=== PATIENT | female | born 1950 | race Native Hawaiian/Other Pacific Islander ===

== ENCOUNTER 2016-11-01 20:15 | Inpatient (IN) | payer MEDICARE ==
--- NOTE | 2016-11-01 20:54 | ED ---
General Adult HPI - General Chief complaint: Upper Respiratory Infection Stated complaint: congestion/high blood pressure/SOB Time Seen by Provider: 11/01/16 20:43 Source: patient, family, RN notes reviewed Mode of arrival: wheelchair Limitations: no limitations - History of Present Illness Initial comments: Chief complaint history of present illness a 65-year-old female who works at [employer] had productive cough for approximately 3 weeks. Slightly decreased appetite but no fever - Related Data Home Medications Medication Instructions Recorded Confirmed Advair Diskus Unknown Strength 1 puff INHALATION BID 11/01/16 11/01/16 Albuterol Inhaler [Ventolin Hfa 2 puff INHALATION RT-Q6H PRN 11/01/16 11/01/16 Inhaler] Cholecalciferol [Vitamin D3] 5,000 unit PO DAILY 11/01/16 11/01/16 Cyanocobalamin [Vitamin B-12] 500 mcg PO DAILY 11/01/16 11/01/16 Losartan [Cozaar] 25 mg PO DAILY 11/01/16 11/01/16 [place]-3 Fatty Acids/Fish Oil [Fish 1 cap PO DAILY 11/01/16 11/01/16 Oil 1,000 mg Softgel] Pilocarpine HCl [Isopto Carpine 4%] 2 drop BOTH EYES BID 11/01/16 11/01/16 Timolol [Betimol 0.5% Ophth Soln] 1 drop BOTH EYES BID 11/01/16 11/01/16 metFORMIN HCL [Glucophage] 500 mg PO BID 11/01/16 11/01/16 Allergies Allergy/AdvReac Type Severity Reaction Status Date / Time No Known Allergies Allergy Verified 11/01/16 20:42 Review of Systems ROS Statement: Those systems with pertinent positive or pertinent negative responses have been documented in the HPI. Review of systems no headache mild sinus pressures pressure when she bends over. Productive cough mild sore throat. No stiff neck or meningismus. No chest pain but she does have cough for 3 weeks. No GI/ problems no neuro deficits. All systems were reviewed. Past medical problems non-insulin diabetes mellitus, hypertension. He does take her medications today blood pressure is elevated 173/103 as a be repeated and treated as necessary. The patient's surgical history is none. Family history mother had liver cancer. Patient denies any ALLERGIES. She smokes only when she was 17 years of age but nothing since then. Denies alcohol use. Denies any exposure to chemicals at work or at home. ROS Other: All systems not noted in ROS Statement are negative. Past Medical History Past Medical History: Diabetes Mellitus, Hypertension History of Any Multi-Drug Resistant Organisms: None Reported Past Surgical History: No Surgical Hx Reported Past Psychological History: No Psychological Hx Reported Smoking Status: Former smoker Past Alcohol Use History: None Reported Past Drug Use History: None Reported General Exam - General Exam Comments Initial Comments: General: The patient is awake and alert, in no distress, and does not appear acutely ill. Complains of cough, sinus pressure. Vital signs temp 97.7 pulse 101 respiratory rate 20 pulse ox 93% on room air blood pressure 173/103. Eye: Pupils are equal, round and reactive to light, extra-ocular movements are intact ; there is normal conjunctiva bilaterally. No signs of icterus. Ears, nose, mouth and throat: There are moist mucous membranes and no oral lesions. Mild sinus pressure when she leans forward. Neck: The neck is supple, there is no tenderness . Cardiovascular: There is a regular rate and rhythm. No murmur, rub or gallop is appreciated. Respiratory: Crepitant rales all 4 lung cano. Mildly productive cough. No chest pain. Gastrointestinal: Soft, non-distended, non-tender abdomen without masses or organomegaly noted. There is no rebound or guarding present. No CVA tenderness. Bowel sounds are unremarkable. Back: There is no tenderness to palpation in the midline. There is no obvious deformity. No rashes noted. Musculoskeletal: Normal ROM, no tenderness, There is no pedal edema. There is no calf tenderness or swelling. Neurological: No neuro deficits complained of. Skin: Skin is warm and dry and no rashes or lesions are noted. Limitations: no limitations Course Vital Signs 11/01/16 11/01/16 11/01/16 20:21 20:55 21:45 Temperature 97.7 F 99.7 F H Pulse Rate 101 H 91 101 H Respiratory 20 22 22 Rate Blood Pressure 173/103 173/98 157/102 O2 Sat by Pulse 93 L 94 L 95 Oximetry 11/01/16 11/01/16 11/01/16 21:50 22:08 22:15 Temperature Pulse Rate 100 100 97 Respiratory 18 Rate Blood Pressure 154/96 O2 Sat by Pulse 95 Oximetry 11/01/16 11/01/16 22:45 23:14 Temperature Pulse Rate 91 90 Respiratory 20 20 Rate Blood Pressure 145/82 136/61 O2 Sat by Pulse 96 95 Oximetry EKG Findings - EKG Comments: EKG Findings:: EKG was done and reviewed at 2146 showing sinus tachycardialeft bundle branch block rate 103. [place] interval is 150 QRS 142 QTc is 426 QTc is 558. There is no old EKG to compare to. Dr. Lobato Medical Decision Making - Medical Decision Making Labs show white count 7.6 hemoglobin 11.9 hematocrit of 36, INR 1.2, potassium 3.6, BUN 21 creatinine 0.7 and GFR greater than 60. Glucose 117. CK normal. Troponin less than 0.012. BNP is elevated at 3570. Chest x-ray done AP and lateral view was reviewed by radiologist his findings are the heart is enlarged. Pulmonary arteries are prominent centrally. No pneumothorax or pleural effusion. Increased lung Y am suggest underlying COPD. No evident airspace disease. Impression; cardiomegaly, correlate for possible pulmonary artery hypertension, COPD. Patient is rotated follow-up suggested. As read by The patient to be admitted for further evaluation. New-onset CHF. Elevated BNP 3570. - Lab Data Result diagrams: 11/01/16 21:45 11/01/16 21:45 Lab Results 11/01/16 11/01/16 11/01/16 Range/Units 21:45 21:45 21:45 WBC 7.6 (3.8-10.6) k/uL RBC 4.09 (3.80-5.40) m/uL Hgb 11.9 (11.4-16.0) gm/dL Hct 36.5 (34.0-46.0) % MCV 89.1 (80.0-100.0) fL MCH 29.1 (25.0-35.0) pg MCHC 32.7 (31.0-37.0) g/dL RDW 15.0 (11.5-15.5) % Plt Count 181 (150-450) k/uL Neutrophils % 66 % Lymphocytes % 24 % Monocytes % 4 % Eosinophils % 4 % Basophils % 1 % Neutrophils # 5.0 (1.3-7.7) k/uL Lymphocytes # 1.8 (1.0-4.8) k/uL Monocytes # 0.3 (0-1.0) k/uL Eosinophils # 0.3 (0-0.7) k/uL Basophils # 0.0 (0-0.2) k/uL Poikilocytosis Slight PT (9.0-12.0) sec INR (<1.1) APTT (22.0-30.0) sec Sodium 145 (137-145) mmol/L Potassium 3.6 (3.5-5.1) mmol/L Chloride 112 H (98-107) mmol/L Carbon Dioxide 22 (22-30) mmol/L Anion Gap 11 mmol/L BUN 21 H (7-17) mg/dL Creatinine 0.70 (0.52-1.04) mg/dL Est GFR (MDRD) Af Amer >60 (>60 ml/min/1.73 sqM) Est GFR (MDRD) Non-Af >60 (>60 ml/min/1.73 sqM) Glucose 117 H (74-99) mg/dL Calcium 9.5 (8.4-10.2) mg/dL Magnesium 1.8 (1.6-2.3) mg/dL Total Bilirubin 0.9 (0.2-1.3) mg/dL AST 40 H (14-36) U/L ALT 47 (9-52) U/L Alkaline Phosphatase 69 (38-126) U/L Total Creatine Kinase 41 (30-135) U/L CK-MB (CK-2) 0.6 (0.0-2.4) ng/mL CK-MB (CK-2) Rel Index 1.5 Troponin I <0.012 (0.000-0.034) ng/mL NT-Pro-B Natriuret Pep pg/mL Total Protein 7.0 (6.3-8.2) g/dL Albumin 4.0 (3.5-5.0) g/dL 11/01/16 11/01/16 Range/Units 21:45 21:45 WBC (3.8-10.6) k/uL RBC (3.80-5.40) m/uL Hgb (11.4-16.0) gm/dL Hct (34.0-46.0) % MCV (80.0-100.0) fL MCH (25.0-35.0) pg MCHC (31.0-37.0) g/dL RDW (11.5-15.5) % Plt Count (150-450) k/uL Neutrophils % % Lymphocytes % % Monocytes % % Eosinophils % % Basophils % % Neutrophils # (1.3-7.7) k/uL Lymphocytes # (1.0-4.8) k/uL Monocytes # (0-1.0) k/uL Eosinophils # (0-0.7) k/uL Basophils # (0-0.2) k/uL Poikilocytosis PT 11.5 (9.0-12.0) sec INR 1.2 (<1.1) APTT 23.6 (22.0-30.0) sec Sodium (137-145) mmol/L Potassium (3.5-5.1) mmol/L Chloride (98-107) mmol/L Carbon Dioxide (22-30) mmol/L Anion Gap mmol/L BUN (7-17) mg/dL Creatinine (0.52-1.04) mg/dL Est GFR (MDRD) Af Amer (>60 ml/min/1.73 sqM) Est GFR (MDRD) Non-Af (>60 ml/min/1.73 sqM) Glucose (74-99) mg/dL Calcium (8.4-10.2) mg/dL Magnesium (1.6-2.3) mg/dL Total Bilirubin (0.2-1.3) mg/dL AST (14-36) U/L ALT (9-52) U/L Alkaline Phosphatase (38-126) U/L Total Creatine Kinase (30-135) U/L CK-MB (CK-2) (0.0-2.4) ng/mL CK-MB (CK-2) Rel Index Troponin I (0.000-0.034) ng/mL NT-Pro-B Natriuret Pep 3570 pg/mL Total Protein (6.3-8.2) g/dL Albumin (3.5-5.0) g/dL Disposition Clinical Impression: Pulmonary artery hypertension Disposition: ADMITTED IP TO THIS HOSP Condition: Fair
[2016-11-01] MEDS ORDERED: cloNIDine HCL 0.2 MG TAB PO STA (20:56)
--- NOTE | 2016-11-01 21:14 | XR ---
EXAMINATION TYPE: XR chest 2V DATE OF EXAM: 11/01/2016 9:04 PM COMPARISON: NONE HISTORY: Productive cough TECHNIQUE: Frontal and lateral views of the chest are obtained. FINDINGS: The heart is enlarged. Pulmonary arteries are prominent centrally. No pneumothorax or pleu ral effusion. Increased lung volume suggests underlying COPD. No evident airspace disease. IMPRESSION: Cardiomegaly, correlate for possible pulmonary artery hypertension, COPD. Patient is rot ated, follow-up suggested.
[2016-11-01] MEDS ORDERED: IPRATROPIUM-ALBUTEROL 3 ML NEB INHALATION STA (21:27)
[2016-11-01 22:03] LABS: Basophils % (A) 1 %; CH 29.5; CHCM 33.4; Eosinophils # (A) 0.3 k/uL (0-0.7); Eosinophils % (A) 4 %; HCT 36.5 % (34.0-46.0); HDW 3.48; HGB 11.9 gm/dL (11.4-16.0); Luc # (Auto) 0.12; Luc % (Auto) 2; Lymphocytes # (A) 1.8 k/uL (1.0-4.8); Lymphocytes % (A) 24 %; MCH 29.1 pg (25.0-35.0); MCHC 32.7 g/dL (31.0-37.0); MCV 89.1 fL (80.0-100.0); Mean Platelet Volume 8.5; Monocytes # (A) 0.3 k/uL (0-1.0); Monocytes % (A) 4 %; Neutrophils % (A) 66 %; Poikilocytosis Slight; RBC 4.09 m/uL (3.80-5.40); WBC 7.6 k/uL (3.8-10.6); WBC (Perox) 7.89
[2016-11-01 22:13] LABS: INR 1.2 (<1.1); Partial Thromboplastin Time 23.6 sec (22.0-30.0); Prothrombin Time 11.5 sec (9.0-12.0)
[2016-11-01 22:22] LABS: ALT 47 U/L (9-52); AST 40 U/L (14-36); Alkaline Phosphatase 69 U/L (38-126); Anion Gap 11 mmol/L; Blood Urea Nitrogen 21 mg/dL (7-17); Calcium 9.5 mg/dL (8.4-10.2); Carbon Dioxide 22 mmol/L (22-30); Chloride 112 mmol/L (98-107); Glucose 117 mg/dL (74-99); Magnesium 1.8 mg/dL (1.6-2.3); Non-African American GFR(MDRD) >60 (>60 ml/min/1.73 sqM); Potassium 3.6 mmol/L (3.5-5.1); Sodium 145 mmol/L (137-145); Total Bilirubin 0.9 mg/dL (0.2-1.3)
[2016-11-01 22:43] LABS: Creatine Kinase 41 U/L (30-135)
[2016-11-01 22:56] LABS: Creatine Kinase MB 0.6 ng/mL (0.0-2.4); Troponin I <0.012 ng/mL (0.000-0.034)
[2016-11-01] MEDS ORDERED: FUROSEMIDE 10 MG/ML 4 ML VIAL IV STA (23:24)
[2016-11-01] MEDS ORDERED: ACETAMINOPHEN TAB 325 MG TAB PO PRN (23:29)
[2016-11-01] MEDS ORDERED: NALOXONE 0.4 MG/ML 1 ML VIAL IV PRN (23:29)
[2016-11-01] MEDS ORDERED: SODIUM CHLORIDE 0.9% 1,000 ML IV SCH (23:30)
[2016-11-01] MEDS ORDERED: ALBUTEROL NEBULIZED 2.5 MG/3 ML INHALATION PRN (23:34)
[2016-11-02] MEDS: metFORMIN 500 MG TAB PO SCH ×2 (06:29→17:34)
[2016-11-02 07:05] LABS: Glucose,Whole Blood 92 mg/dL (75-99)
[2016-11-02] MEDS: CHOLECALCIFEROL 1,000 UNIT TAB PO SCH (08:09)
[2016-11-02] MEDS: LOSARTAN 25 MG TAB PO SCH (08:10)
[2016-11-02] MEDS: TIMOLOL 0.5% OPHTH DROPS 5 ML BTL BOTH EYES SCH ×2 (08:17→21:43)
--- NOTE | 2016-11-02 10:38 | P.CRDCN ---
History of Present Illness Consult date: 11/02/16 Requesting physician: Leif Lubin Consult reason: shortness of breath Chief complaint: Shortness of breath History of present illness: This is a 65-year-old female with history of hypertension, diabetes, who presents to the hospital with shortness of breath. According to the patient for the past 3 weeks or more she has been quite short of breath at home. She states that she was initially treated for bronchitis as an outpatient , on 2 separate trials of antibiotics. In spite of this she continued to feel short of breath. Patient also complained of progressive cough, with clear sputum production. She states that when she would try to lie flat, she could not breathe and persistently coughed. She was using more and more pillows at home underneath her to be able to sleep, because of the difficulty in breathing. She denies having any chest pressure, no chest heaviness. Chest x- ray on admission revealed cardiomegaly, pulmonary arterial hypertension, COPD. EKG on admission showed a sinus tachycardia with a left bundle-branch block pattern. Nonspecific ST-T wave changes. CBC normal, potassium 3.6, BUN 21, creatinine 0.7. BNP level on arrival 3570, troponin 0.012. Blood Pressure on arrival 173/103, heart rate in the 100s, 93% on room air. Blood pressure this morning 132/70 with a heart rate in the 80s. Past Medical History Past Medical History: Diabetes Mellitus, Hypertension History of Any Multi-Drug Resistant Organisms: None Reported Past Surgical History: No Surgical Hx Reported Past Psychological History: No Psychological Hx Reported Smoking Status: Former smoker Past Alcohol Use History: None Reported Past Drug Use History: None Reported Medications and Allergies Home Medications Medication Instructions Recorded Confirmed Type Albuterol Inhaler [Ventolin Hfa 2 puff INHALATION RT-Q6H PRN 11/01/16 11/01/16 History Inhaler] Cholecalciferol [Vitamin D3] 5,000 unit PO DAILY 11/01/16 11/01/16 History Cyanocobalamin [Vitamin B-12] 500 mcg PO DAILY 11/01/16 11/01/16 History Losartan [Cozaar] 25 mg PO DAILY 11/01/16 11/01/16 History [place]-3 Fatty Acids/Fish Oil [Fish 1 cap PO DAILY 11/01/16 11/01/16 History Oil 1,000 mg Softgel] [place]oc[place] HCl [Isopto Carpine 4%] 2 drop BOTH EYES BID 11/01/16 11/01/16 History Timolol [Betimol 0.5% Ophth Soln] 1 drop BOTH EYES BID 11/01/16 11/01/16 History metFORMIN HCL [Glucophage] 500 mg PO BID 11/01/16 11/01/16 History Fluticasone/Salmeterol [Advair 1 inhalation PO RT-BID 11/02/16 11/02/16 History 250-50 Diskus] Allergies Allergy/AdvReac Type Severity Reaction Status Date / Time No Known Allergies Allergy Verified 11/01/16 20:42 Physical Exam Vitals: Vital Signs Temp Pulse Pulse Resp BP BP Pulse Ox 11/02/16 08:05 98.1 F 84 16 133/78 97 11/02/16 04:00 84 20 129/71 94 L 11/01/16 23:59 97.0 F L 87 20 134/78 96 11/01/16 23:38 98.9 F 89 20 133/78 95 Intake and Output 11/01/16 11/02/16 11/02/16 22:59 06:59 14:59 Intake Total 600 Output Total 550 500 Balance 50 -500 Intake: Intake, IV Titration 350 Amount Sodium Chloride 0.9% 1, 350 000 ml @ 50 mls/hr IV . Q20H [facility] Rx#:[id number] Oral 250 Output: Urine 550 500 Other: Voiding Method Toilet Weight 70.307 kg PHYSICAL EXAMINATION: HEENT: Head is atraumatic, normocephalic. Pupils equal, round. Neck is supple. There is elevated jugular venous pressure. HEART EXAMINATION: Heart S1, S2 systolic murmur heard. No murmur or gallop heard. CHEST EXAMINATION: Lungs are clear with diminished air entry to bilateral bases . ABDOMEN: Soft, nontender. Bowel sounds are heard. Mild hepatomegaly noted. EXTREMITIES: 2+ peripheral pulses with no evidence of peripheral edema and no calf tenderness noted. NEUROLOGIC patient is awake, alert and oriented -3. . Results 11/01/16 21:45 11/01/16 21:45 Current Medications Generic Name Dose Route Start Last Admin Trade Name Freq PRN Reason Stop Dose Admin Acetaminophen 650 mg 11/01/16 23:29 Tylenol Tab PO Q6HR PRN Mild Pain or Fever > 100.5 Albuterol Sulfate 2.5 mg 11/01/16 23:34 Ventolin Nebulized INHALATION RT-Q6H PRN Shortness Of Breath Carvedilol 3.125 mg 11/02/16 10:00 Coreg PO BID-W/MEALS [facility] Cholecalciferol 5,000 unit 11/02/16 09:00 11/02/16 08:09 Vitamin D3 PO 5,000 unit DAILY [facility] Administration Furosemide 40 mg 11/02/16 10:00 Lasix IV Q12HR [facility] [place] Insulin Human Lispro 0 unit 11/02/16 12:30 Humalog SQ ACHS [facility] Protocol Losartan Potassium 25 mg 11/02/16 09:00 11/02/16 08:10 Cozaar PO 25 mg DAILY [facility] Administration Metformin HCl 500 mg 11/02/16 07:30 11/02/16 06:29 Glucophage PO Not Given AC-BID [facility] [place] Naloxone HCl 0.2 mg 11/01/16 23:29 Narcan IV Q2M PRN Opioid Reversal Non-Formulary Medication 2 drop 11/02/16 09:00 Pilocarpine Hcl [Isopto Carpine 4%] BOTH EYES BID [facility] [place] Timolol Maleate 1 drops 11/02/16 09:00 11/02/16 08:17 Timoptic BOTH EYES 1 drops BID [facility] Administration Intake and Output 11/01/16 11/02/16 11/02/16 22:59 06:59 14:59 Intake Total 600 Output Total 550 500 Balance 50 -500 Intake: Intake, IV Titration 350 Amount Sodium Chloride 0.9% 1, 350 000 ml @ 50 mls/hr IV . Q20H [facility] [place] Rx#:[id number] Oral 250 Output: Urine 550 500 Other: Voiding Method Toilet Weight 70.307 kg EKG Interpretations (text) EKG shows a sinus tachycardia with a left bundle-branch block pattern and nonspecific ST-T wave changes Assessment and Plan Plan: Assessment and plan #1 systolic congestive heart failure, acute on chronic. BNP level 3570. Patient initiated on IV Lasix in the emergency room, weight is down 3 kg today. #2 hypertension, accelerated #3 history of hypertension #4 diabetes #5 recent upper respiratory infection Plan Cardiac gram with Doppler study was obtained, this was reviewed by Dr. Rizvi, patient's LV function is significantly reduced. This could be secondary to recent virus, also could be related to uncontrolled hypertension. Continue maximal medical therapy. Further recommendations to follow. DNP note has been reviewed, I agree with a documented findings and plan of care. Patient was seen and examined.
[2016-11-02 11:29] LABS: Hemoglobin A1C 5.1 % (4.2-6.1)
--- NOTE | 2016-11-02 11:42 | ECHOF ---
Referral Reason:New-onset CHF, pulmonary artery hypertension MEASUREMENTS -------- HEIGHT: 152.4 cm WEIGHT: 70.3 kg BP: 129/71 RVIDd: 2.4 cm (< 3.3) IVSd: 1.2 cm (0.6 - 1.1) LVIDd: 4.9 cm (3.9 - 5.3) LVPWd: 1.0 cm (0.6 - 1.1) IVSs: 1.2 cm LVIDs: 4.7 cm LVPWs: 1.2 cm LA Diam: 4.1 cm (2.7 - 3.8) LAESV Index (A-L): 49.54 ml/m Ao Diam: 3.2 cm (2.0 - 3.7) AV Cusp: 1.9 cm (1.5 - 2.6) LA Diam: 4.5 cm (2.7 - 3.8) MV EXCURSION: 14.382 mm (> 18.000) MV EF SLOPE: 69 mm/s (70 - 150) EPSS: 1.8 cm MV E Matthieu: 1.00 m/s MV DecT: 165 ms MV A Matthieu: 0.66 m/s MV E/A Ratio: 1.51 RAP: 5.00 mmHg RVSP: 52.75 mmHg FINDINGS -------- Sinus rhythm. This was a techncally difficult study with suboptimal views, , Definity utilized for enhancement of images. There is mild concentric left ventricular hypertrophy. There is severe global hypokinesis of LV . Overall left ventricular systolic function is severely impaired with, an EF < 20%. The right ventricle is normal in size. LA is severely dilated >40 ml/m2 The right atrial size is normal. There is mild aortic valve sclerosis. There is no evidence of aortic regurgitation. Mild mitral annular calcification present. Moderate mitral regurgitation is present. Mild tricuspid regurgitation present. There is moderate pulmonary hypertension. The right ventricular systolic pressure, as measured by Doppler, is 52.75mmHg. Trace/mild (physiologic) pulmonic regurgitation. The aortic root size is normal. There is no pericardial effusion. CONCLUSIONS -------- 1. This was a techncally difficult study with suboptimal views, , Definity utilized for enhancement of images. 2. There is moderate pulmonary hypertension. 3. The right ventricular systolic pressure, as measured by Doppler, is 52.75mmHg. 4. There is mild concentric left ventricular hypertrophy. 5. There is severe global hypokinesis of LV . 6. Overall left ventricular systolic function is severely impaired with, an EF < 20%. 7. LA is severely dilated >40 ml/m2 8. There is mild aortic valve sclerosis. 9. Mild mitral annular calcification present. 10. Moderate mitral regurgitation is present. 11. Mild tricuspid regurgitation present. SPRING INSPECTOR: Thea Arroyo RDCS
[2016-11-02 11:43] LABS: Glucose,Whole Blood 101 mg/dL (75-99)
[2016-11-02] MEDS: FUROSEMIDE 10 MG/ML 4 ML VIAL IV SCH ×2 (12:36→21:44)
[2016-11-02] MEDS: CARVEDILOL 3.125 MG TAB PO SCH ×2 (12:36→17:34)
[2016-11-02] MEDS: INSULIN LISPRO (humaLOG) 300 UNIT/3 ML VIAL SQ SCH ×3 (12:37→21:27)
--- NOTE | 2016-11-02 13:09 | P.HPIM ---
History of Present Illness H&P Date: 11/02/16 Chief Complaint: Acute systolic heart failure This is a 65-year-old female with a previous medical history significant for hypertension and hypertensive cardiovascular disease, diabetes mellitus type 2, overweight, patient was seen by her family physician Dr. Levin about a week ago because of increased shortness breath, apparently the patient developed to have a significant upper respiratory tract infection with a sore throat and an acute bronchitis about 2 weeks prior to this presentation and the yesterday she became so short of breath that she could not even embolism for a few steps without getting extremely short of breath she ended up coming to the ER at [facility] and she was found to have pulmonary venous congestion with the acute systolic heart failure after she did have an echocardiogram with ejection fraction 20%. Patient had a baseline EKG with left bundle branch block , patient will need to have further ventilation by cardiology, patient will be seen and evaluated she was started already on Lasix 40 mg IV push every 12 hours , she was started on losartan along with Coreg 3.125 mg orally twice every day. Review of Systems Constitutional: Reports malaise, Reports weakness, Reports weight gain, Denies chronic headaches, Denies chronic pain, Denies fever, Denies lethargy Eyes: denies blurred vision, denies bulging eye, denies decreased vision Ears: deny: decreased hearing Ears, nose, mouth and throat: Denies dysphagia, Denies neck lump, Denies sore throat, Denies vertigo Breasts: absent: change in shape Cardiovascular: Reports decreased exercise tolerance, Reports dyspnea on exertion, Reports high blood pressure, Reports orthopnea, Reports paroxysmal nocturnal dyspnea, Reports shortness of breath, Denies chest pain, Denies irregular heart beat, Denies palpitations, Denies phlebitis, Denies rapid heart beat, Denies syncope Respiratory: Reports congestion, Reports cough, Denies cough with sputum, Denies home oxygen, Denies pain, Denies sleep apnea, Denies snoring, Denies wheezing Gastrointestinal: Denies abdominal pain, Denies bloating, Denies BRBPR, Denies change in bowel habits, Denies excessive gas, Denies heartburn, Denies hematemesis, Denies melena, Denies nausea, Denies vomiting Genitourinary: Denies dysuria, Denies hematuria Menstruation: Reports postmenopausal Musculoskeletal: Denies myalgias Musculoskeletal: bilateral: ankle swelling, absent: ankle pain, ankle stiffness , elbow pain, elbow stiffness, elbow swelling, foot pain, foot stiffness, foot swelling, hand pain, hand stiffness, hand swelling, hip pain, hip stiffness, hip swelling, knee pain, knee stiffness, knee swelling, shoulder pain, shoulder stiffness, shoulder swelling, wrist pain, wrist stiffness, wrist swelling Integumentary: Denies pruritus, Denies rash Neurological: Denies numbness, Denies weakness Psychiatric: Denies anxiety, Denies depression Endocrine: Denies fatigue, Denies weight change Past Medical History Past Medical History: Diabetes Mellitus, Hyperlipidemia, Hypertension, Osteoarthritis (OA) History of Any Multi-Drug Resistant Organisms: None Reported Past Surgical History: No Surgical Hx Reported Past Psychological History: No Psychological Hx Reported Smoking Status: Former smoker (Patient used to smoke about pack every week for about 2 years and she quit many years ago.) Past Alcohol Use History: None Reported Past Drug Use History: None Reported - Past Family History Mother Family Medical History: Cancer (Mother at age of 81 from liver cancer.) Father Family Medical History: Diabetes Mellitus (Father at age of 88 from complications due to diabetes mellitus type 2.) Brother(s) Family Medical History: No Reported History (Patient has 4 brothers no major medical problems.) Sister(s) Family Medical History: Diabetes Mellitus (Patient has 6 sisters one of them with diabetes mellitus type 2.) Son(s) Family Medical History: No Reported History (Patient has 3 sons no major medical problems) Medications and Allergies Home Medications Medication Instructions Recorded Confirmed Type Albuterol Inhaler [Ventolin Hfa 2 puff INHALATION RT-Q6H PRN 11/01/16 11/01/16 History Inhaler] Cholecalciferol [Vitamin D3] 5,000 unit PO DAILY 11/01/16 11/01/16 History Cyanocobalamin [Vitamin B-12] 500 mcg PO DAILY 11/01/16 11/01/16 History Losartan [Cozaar] 25 mg PO DAILY 11/01/16 11/01/16 History [place]-3 Fatty Acids/Fish Oil [Fish 1 cap PO DAILY 11/01/16 11/01/16 History Oil 1,000 mg Softgel] Pilocarpine HCl [Isopto Carpine 4%] 2 drop BOTH EYES BID 11/01/16 11/01/16 History Timolol [Betimol 0.5% Ophth Soln] 1 drop BOTH EYES BID 11/01/16 11/01/16 History metFORMIN HCL [Glucophage] 500 mg PO BID 11/01/16 11/01/16 History Fluticasone/Salmeterol [Advair 1 inhalation PO RT-BID 11/02/16 11/02/16 History 250-50 Diskus] Allergies Allergy/AdvReac Type Severity Reaction Status Date / Time No Known Allergies Allergy Verified 11/01/16 20:42 Physical Exam Vitals: Vital Signs Temp Pulse Pulse Resp BP BP Pulse Ox 11/02/16 11:35 98.5 F 91 16 145/90 94 L 11/02/16 08:05 98.1 F 84 16 133/78 97 11/02/16 04:00 84 20 129/71 94 L 11/01/16 23:59 97.0 F L 87 20 134/78 96 11/01/16 23:38 98.9 F 89 20 133/78 95 Intake and Output 11/01/16 11/02/16 11/02/16 22:59 06:59 14:59 Intake Total 600 250 Output Total 550 600 Balance 50 -350 Intake: Intake, IV Titration 350 250 Amount Sodium Chloride 0.9% 1, 350 250 000 ml @ 50 mls/hr IV . Q20H [facility] Rx#:[id number] Oral 250 Output: Urine 550 600 Other: Voiding Method Toilet Weight 70.307 kg - Constitutional General appearance: mild distress - EENT Eyes: anicteric sclerae, EOMI, PERRLA, no ptosis, no scleral icterus, normal appearance ENT: hearing grossly normal, normal oropharynx, no thrush, no tonsillar exudates Ears: bilateral: normal - Neck Neck: no lymphadenopathy, normal ROM, no rigidity, no stridor, no thyromegaly Carotids: bilateral: upstroke normal Thyroid: bilateral: normal size - Respiratory Respiratory: bilateral: diminished, rales, negative: dullness, rhonchi, wheezing , prolonged expiration - Cardiovascular Rhythm: regular Heart sounds: normal: S1, S2 Abnormal Heart Sounds: systolic murmur, S3 Gallop - Gastrointestinal General gastrointestinal: normal bowel sounds, soft, no splenomegaly, no tenderness, no umbilical hernia, no ventral hernia - Integumentary Integumentary: normal, normal turgor - Neurologic Neurologic: CNII-XII intact - Musculoskeletal Musculoskeletal: gait normal, generalized weakness - Psychiatric Psychiatric: A&O x's 3, appropriate affect, intact judgment & insight Results CBC & Chem 7: 11/01/16 21:45 11/01/16 21:45 Labs: Abnormal Lab Results - Last 24 Hours (Table) 11/02/16 Range/Units 11:38 POC Glucose (mg/dL) 101 H (75-99) mg/dL Thrombosis Risk Factor Assmnt - DVT/VTE Prophylaxis DVT/VTE Prophylaxis: Pharmacologic Prophylaxis ordered, Mechanical Prophylaxis ordered - Choose All That Apply Each Risk Factor Represents 2 Points: Age 61-74 years Thrombosis Risk Factor Assessment Total Risk Factor Score: 2 Thrombosis Risk Factor Assessment Level: Low Risk Assessment and Plan Plan: Assessment and plan: 1. Acute on chronic systolic heart failure likely related to viral illness. Lasix 40 mg IV push every 12 hours, losartan 25 mg orally once every day, Coreg 3.125 mg orally twice every day, echogram was done, cardiac enzymes were done, input and output and daily weight, low salt intake, cardiology consultation, dietitian for fluid restriction. 2. Accelerated hypertension. Continue losartan 25 mg orally once every day, Coreg 3.125 mg orally twice every day. 3. Diabetes mellitus type 2. Continue consistent carbohydrate diet 1800- calorie, metformin 500 mg orally twice every day, BGM before each meal and at bedtime. 4. Obesity with possible obstructive sleep apnea. Patient will need to have a sleep study as an outpatient. 5. DVT prophylaxis. Heparin 5000 units subcutaneously every 12 hours. 6. GI prophylaxis. Continue Protonix 40 mg orally once every day. 7. Patient is full code. 8. Admit to inpatient. Estimate length of stay 2 midnights.
[2016-11-02 16:51] LABS: Glucose,Whole Blood 139 mg/dL (75-99)
[2016-11-02 20:56] LABS: Glucose,Whole Blood 106 mg/dL (75-99)
[2016-11-02] MEDS: HEPARIN SODIUM,PORCINE 5,000 UNIT/ML 1 ML VIAL SQ SCH (21:44)
[2016-11-03 06:40] LABS: Basophils % (A) 0 %; CH 29.4; CHCM 34.3; Eosinophils # (A) 0.2 k/uL (0-0.7); Eosinophils % (A) 4 %; HCT 40.8 % (34.0-46.0); HDW 3.57; HGB 13.7 gm/dL (11.4-16.0); Luc # (Auto) 0.18; Luc % (Auto) 3; Lymphocytes # (A) 2.2 k/uL (1.0-4.8); Lymphocytes % (A) 37 %; MCHC 33.6 g/dL (31.0-37.0); MCV 86.5 fL (80.0-100.0); Monocytes # (A) 0.4 k/uL (0-1.0); Monocytes % (A) 6 %; Neutrophils % (A) 50 %; Poikilocytosis Slight; RBC 4.72 m/uL (3.80-5.40); RDW 14.4 % (11.5-15.5); WBC 5.9 k/uL (3.8-10.6); WBC (Perox) 5.94
[2016-11-03 06:49] LABS: Glucose,Whole Blood 118 mg/dL (75-99)
[2016-11-03 06:53] LABS: ALT 43 U/L (9-52); AST 35 U/L (14-36); Alkaline Phosphatase 66 U/L (38-126); Anion Gap 14 mmol/L; Blood Urea Nitrogen 19 mg/dL (7-17); Calcium 10.1 mg/dL (8.4-10.2); Carbon Dioxide 27 mmol/L (22-30); Chloride 104 mmol/L (98-107); Glucose 101 mg/dL (74-99); Magnesium 1.8 mg/dL (1.6-2.3); Non-African American GFR(MDRD) >60 (>60 ml/min/1.73 sqM); Potassium 3.5 mmol/L (3.5-5.1); Sodium 145 mmol/L (137-145); Total Bilirubin 1.5 mg/dL (0.2-1.3); Total Protein 8.2 g/dL (6.3-8.2)
[2016-11-03] MEDS: CARVEDILOL 3.125 MG TAB PO SCH ×2 (06:54→17:07)
[2016-11-03] MEDS: metFORMIN 500 MG TAB PO SCH ×2 (06:54→17:07)
[2016-11-03] MEDS: INSULIN LISPRO (humaLOG) 300 UNIT/3 ML VIAL SQ SCH ×4 (06:55→21:14)
[2016-11-03] MEDS: CHOLECALCIFEROL 1,000 UNIT TAB PO SCH (09:57)
[2016-11-03] MEDS: FUROSEMIDE 10 MG/ML 4 ML VIAL IV SCH ×2 (09:58→21:14)
[2016-11-03] MEDS: HEPARIN SODIUM,PORCINE 5,000 UNIT/ML 1 ML VIAL SQ SCH ×2 (09:59→21:14)
[2016-11-03] MEDS: LOSARTAN 25 MG TAB PO SCH (10:00)
[2016-11-03] MEDS: TIMOLOL 0.5% OPHTH DROPS 5 ML BTL BOTH EYES SCH ×2 (10:00→21:14)
--- NOTE | 2016-11-03 11:57 | P.PN ---
Subjective This is a 65-year-old female with a previous medical history significant for hypertension and hypertensive cardiovascular disease, diabetes mellitus type 2, overweight, patient was seen by her family physician Dr. Levin about a week ago because of increased shortness breath, apparently the patient developed to have a significant upper respiratory tract infection with a sore throat and an acute bronchitis about 2 weeks prior to this presentation and the yesterday she became so short of breath that she could not even embolism for a few steps without getting extremely short of breath she ended up coming to the ER at [facility] and she was found to have pulmonary venous congestion with the acute systolic heart failure after she did have an echocardiogram with ejection fraction 20%. Patient had a baseline EKG with left bundle branch block , patient will need to have further ventilation by cardiology, patient will be seen and evaluated she was started already on Lasix 40 mg IV push every 12 hours , she was started on losartan along with Coreg 3.125 mg orally twice every day. 11/03: Weight is down 4.5 kg since admission. BUN 19 creatinine 0.73. She remains on Lasix 40 mg IV every 12 hours. She states her breathing is improved from yesterday. She has had a bowel movement. She is walking short distances. Objective - Vital Signs Vital signs: Vital Signs Temp 97.8 F 11/02/16 20:00 Pulse 79 11/03/16 03:44 Resp 18 11/03/16 03:44 BP 114/73 11/03/16 03:30 Pulse Ox 97 11/03/16 08:38 Intake & Output 11/02/16 11/03/16 11/03/16 18:59 06:59 18:59 Intake Total 486 300 Output Total 600 100 Balance -114 200 Weight 68.8 kg Intake: Intake, IV Titration 250 Amount Sodium Chloride 0.9% 1, 250 000 ml @ 50 mls/hr IV . Q20H [facility] Rx#:[id number] Oral 236 300 Output: Urine 600 100 Other: Voiding Method Toilet Toilet # Voids 1 - Exam General appearance: mild distress - EENT Eyes: anicteric sclerae, EOMI, PERRLA, no ptosis, no scleral icterus, normal appearance ENT: hearing grossly normal, normal oropharynx, no thrush, no tonsillar exudates Ears: bilateral: normal - Neck Neck: no lymphadenopathy, normal ROM, no rigidity, no stridor, no thyromegaly Carotids: bilateral: upstroke normal Thyroid: bilateral: normal size - Respiratory Respiratory: bilateral: diminished, rales, negative: dullness, rhonchi, wheezing , prolonged expiration - Cardiovascular Rhythm: regular Heart sounds: normal: S1, S2 Abnormal Heart Sounds: systolic murmur, S3 Gallop - Gastrointestinal General gastrointestinal: normal bowel sounds, soft, no splenomegaly, no tenderness, no umbilical hernia, no ventral hernia - Integumentary Integumentary: normal, normal turgor - Neurologic Neurologic: CNII-XII intact - Musculoskeletal Musculoskeletal: gait normal, generalized weakness - Psychiatric Psychiatric: A&O x's 3, appropriate affect, intact judgment & insight - Labs CBC & Chem 7: 11/03/16 06:08 11/03/16 06:08 Labs: Abnormal Lab Results - Last 24 Hours (Table) 11/02/16 11/02/16 11/02/16 Range/Units 11:38 16:39 20:54 BUN (7-17) mg/dL Glucose (74-99) mg/dL POC Glucose (mg/dL) 101 H 139 H 106 H (75-99) mg/dL Total Bilirubin (0.2-1.3) mg/dL 11/03/16 11/03/16 Range/Units 06:08 06:47 BUN 19 H (7-17) mg/dL Glucose 101 H (74-99) mg/dL POC Glucose (mg/dL) 118 H (75-99) mg/dL Total Bilirubin 1.5 H (0.2-1.3) mg/dL Assessment and Plan Plan: 1. Acute on chronic systolic heart failure likely related to viral illness. Lasix 40 mg IV push every 12 hours, losartan 25 mg orally once every day, Coreg 3.125 mg orally twice every day, echogram was done, cardiac enzymes were done, input and output and daily weight, low salt intake, cardiology consultation, dietitian for fluid restriction. 2. Accelerated hypertension. Continue losartan 25 mg orally once every day, Coreg 3.125 mg orally twice every day. 3. Diabetes mellitus type 2. Continue consistent carbohydrate diet 1800- calorie, metformin 500 mg orally twice every day, BGM before each meal and at bedtime. 4. Obesity with possible obstructive sleep apnea. Patient will need to have a sleep study as an outpatient. 5. DVT prophylaxis. Heparin 5000 units subcutaneously every 12 hours. 6. GI prophylaxis. Continue Protonix 40 mg orally once every day. 7. Patient is full code. Discharge plan: Return home Impression and plan of care have been directed as dictated by the signing physician. Eunice Longoria nurse practitioner acting as scribe for signing physician. Time with Patient: Greater than 30
[2016-11-03 12:02] LABS: Glucose,Whole Blood 118 mg/dL (75-99)
--- NOTE | 2016-11-03 15:12 | P.PN ---
Subjective This is a 65-year-old female with history of hypertension, diabetes, who presents to the hospital with shortness of breath. According to the patient for the past 3 weeks or more she has been quite short of breath at home. She states that she was initially treated for bronchitis as an outpatient , on 2 separate trials of antibiotics. In spite of this she continued to feel short of breath. Patient also complained of progressive cough, with clear sputum production. She states that when she would try to lie flat, she could not breathe and persistently coughed. She was using more and more pillows at home underneath her to be able to sleep, because of the difficulty in breathing. She denies having any chest pressure, no chest heaviness. Chest x- ray on admission revealed cardiomegaly, pulmonary arterial hypertension, COPD. EKG on admission showed a sinus tachycardia with a left bundle-branch block pattern. Nonspecific ST-T wave changes. Echocardiogram with Doppler study was performed which revealed an ejection fraction of less than 20%, moderate mitral regurgitation. She was initiated on IV Lasix, she diuresed well through the last night. He is down 2 kg today. BUN 19, creatinine 0.7, potassium 3.5. Overall patient is feeling much better. Patient will be scheduled to undergo cardiac catheterization tomorrow to rule out underlying coronary artery disease. The risks and the benefits were explained to the patient and her family in detail. Objective - Vital Signs Vital signs: Vital Signs Temp 97.8 F 11/03/16 11:55 Pulse 77 11/03/16 11:55 Resp 18 11/03/16 11:55 BP 126/74 11/03/16 11:55 Pulse Ox 95 11/03/16 11:55 Intake & Output 11/02/16 11/03/16 11/03/16 18:59 06:59 18:59 Intake Total 486 300 Output Total 600 100 200 Balance -114 200 -200 Weight 68.8 kg Intake: Intake, IV Titration 250 Amount Sodium Chloride 0.9% 1, 250 000 ml @ 50 mls/hr IV . Q20H [facility] Rx#:[id number] Oral 236 300 Output: Urine 600 100 200 Other: Voiding Method Toilet Toilet Toilet # Voids 1 - Exam PHYSICAL EXAMINATION: HEENT: Head is atraumatic, normocephalic. Pupils equal, round. Neck is supple. There is no elevated jugular venous pressure. HEART EXAMINATION: Heart S1 S2 1 systolic murmur is heard. CHEST EXAMINATION: Real improvement in air entry bilaterally. ABDOMEN: Soft, nontender. Bowel sounds are heard. No organomegaly noted. EXTREMITIES: 2+ peripheral pulses with trace evidence of peripheral edema and no calf tenderness noted. NEUROLOGIC patient is awake, alert and oriented -3. . - Labs CBC & Chem 7: 11/03/16 06:08 11/03/16 06:08 Labs: Abnormal Lab Results - Last 24 Hours (Table) 11/02/16 11/02/16 11/03/16 Range/Units 16:39 20:54 06:08 BUN 19 H (7-17) mg/dL Glucose 101 H (74-99) mg/dL POC Glucose (mg/dL) 139 H 106 H (75-99) mg/dL Total Bilirubin 1.5 H (0.2-1.3) mg/dL 11/03/16 11/03/16 Range/Units 06:47 11:56 BUN (7-17) mg/dL Glucose (74-99) mg/dL POC Glucose (mg/dL) 118 H 118 H (75-99) mg/dL Total Bilirubin (0.2-1.3) mg/dL Assessment and Plan Plan: Assessment and plan #1 systolic congestive heart failure, acute on chronic. BNP level 3570. Patient on IV Lasix down 2 kg today. #2 hypertension, accelerated #3 history of hypertension #4 diabetes #5 recent upper respiratory infection #6 cardiomyopathy, could be viral, could be secondary to hypertension. Rule out underlying coronary artery disease. Plan Patient will undergo cardiac catheterization tomorrow with Dr. Rizvi. The risks and the benefits were explained to the patient in detail. She is ready to proceed DNP note has been reviewed, I agree with a documented findings and plan of care. Patient was seen and examined.
[2016-11-03 16:57] LABS: Glucose,Whole Blood 133 mg/dL (75-99)
[2016-11-03 20:57] LABS: Glucose,Whole Blood 103 mg/dL (75-99)
[2016-11-04] MEDS: CARVEDILOL 3.125 MG TAB PO SCH ×2 (06:36→17:20)
[2016-11-04] MEDS: LOSARTAN 25 MG TAB PO SCH (06:36)
[2016-11-04 06:49] LABS: Glucose,Whole Blood 114 mg/dL (75-99)
[2016-11-04] MEDS ORDERED: LIDOCAINE 2% INJ 20 MG/ML (20 ML MDV) ONE ×2 (07:32→07:33)
[2016-11-04] MEDS ORDERED: ASPIRIN 325 MG TAB ONE (07:33)
[2016-11-04] MEDS ORDERED: ASPIRIN 325 MG TAB PO ONE (07:40)
[2016-11-04] MEDS ORDERED: SODIUM CHLORIDE 0.9% 500 ML IV ONE (07:40)
[2016-11-04] MEDS ORDERED: MIDAZOLAM 2 MG/2 ML VIAL ONE (07:45)
[2016-11-04] MEDS ORDERED: fentaNYL (PF) 50 MCG/ML 2 ML AMP ONE (07:45)
[2016-11-04 07:49] LABS: Anion Gap 14 mmol/L; Blood Urea Nitrogen 25 mg/dL (7-17); Calcium 10.1 mg/dL (8.4-10.2); Carbon Dioxide 26 mmol/L (22-30); Chloride 104 mmol/L (98-107); Glucose 114 mg/dL (74-99); Non-African American GFR(MDRD) >60 (>60 ml/min/1.73 sqM); Potassium 3.6 mmol/L (3.5-5.1); Sodium 144 mmol/L (137-145)
[2016-11-04] MEDS ORDERED: MIDAZOLAM 2 MG/2 ML VIAL IV ONE (07:49)
[2016-11-04] MEDS ORDERED: fentaNYL (PF) 50 MCG/ML 2 ML AMP IV ONE (07:49)
[2016-11-04] MEDS ORDERED: LIDOCAINE 2% INJ 20 MG/ML SQ ONE (07:51)
[2016-11-04] MEDS: INSULIN LISPRO (humaLOG) 300 UNIT/3 ML VIAL SQ SCH ×4 (07:58→21:43)
[2016-11-04] MEDS ORDERED: IOHEXOL 350 MG/ML 125ML BOTTLE INJ ONE (08:01)
[2016-11-04] MEDS ORDERED: RX INFO: IV CONTRAST WAS GIVEN 1 EACH MISC MISCELLANE PRN (08:07)
--- NOTE | 2016-11-04 08:13 | P.PCN ---
Date of Procedure: 11/04/16 Preoperative Diagnosis: Cardiomyopathy and congestive heart failure Postoperative Diagnosis: Mild coronary artery disease and calcification. No significant lesions Procedure(s) Performed: Left heart catheterization without left ventriculography Description of Procedure: HISTORY: This is a 65-year-old female with history of hypertension who was admitted to the hospital with complaints of shortness of breath and evidence of congestive heart failure. Echocardiogram showed severely depressed LV function and size to cardiomyopathy. Patient also has a left bundle branch block. She is advised to have cardiac catheterization for definitive diagnosis. CONSENT:I have discussed the risks, benefits and alternative therapies for the above-mentioned procedure and for both sedation/analgesia as well as necessary blood product administration, if indicated, as they pertain to this patient. The patient has indicated understanding and acceptance of the risks and procedures discussed. PROCEDURE: Patient was brought to the lab in a fasting state. Patient was given some IV sedation. The right groin is infiltrated with lidocaine and right femoral artery was entered using Seldinger technique. A 6-Trinidadian catheter was left in place and selective coronary arteriography and left ventriculography was performed. Patient tolerated the procedure well. Femoral angiogram was performed and Angio-Seal was applied for hemostasis. No immediate complications were noted and patient was transferred to [facility] in a stable condition HEMODYNAMICS: The aortic pressure is 130/75. Left ankle end-diastolic pressure is about 16. There was no gradient across the aortic valve SELECTIVE CORONARY ARTERIOGRAPHY: LEFT MAIN: This is of normal length and patent THE LEFT ANTERIOR DESCENDING CORONARY ARTERY: This is a good caliber vessel giving rise to several diagonal and septal branches. The LAD shows calcification in the proximal portion but no critical lesions were noted. THE LEFT CIRCUMFLEX AND IS CORONARY ARTERY: This is a fairly caliber vessel giving rise to good-sized to PLV branches and apical segment. This is free of any Sigmund and occlusive disease. THE RIGHT CORONARY ARTERY: This is a dominant vessel giving rise to good-sized PDA and PLV. Has calcification and mild irregularities and intimal plaque in the mid and distal portion. No critical lesions noted LEFT VENTRICULOGRAPHY: Not performed FINAL IMPRESSION: Calcification and mild plaque without any critical stenosis PLAN: Continuation maximum medical therapy and risk factor modification PROGNOSIS: Guarded
[2016-11-04] MEDS: metFORMIN 500 MG TAB PO SCH (08:40)
[2016-11-04] MEDS: SODIUM CHLORIDE 0.9% 1,000 ML IV SCH (08:44)
[2016-11-04] MEDS: HEPARIN SODIUM,PORCINE 5,000 UNIT/ML 1 ML VIAL SQ SCH ×2 (09:18→21:46)
[2016-11-04] MEDS: FUROSEMIDE 10 MG/ML 4 ML VIAL IV SCH (09:18)
[2016-11-04] MEDS: CHOLECALCIFEROL 1,000 UNIT TAB PO SCH (09:18)
[2016-11-04] MEDS: TIMOLOL 0.5% OPHTH DROPS 5 ML BTL BOTH EYES SCH ×2 (09:18→21:46)
[2016-11-04 09:52] VITALS: BMI 29.3
[2016-11-04 11:46] LABS: Glucose,Whole Blood 143 mg/dL (75-99)
--- NOTE | 2016-11-04 12:03 | P.PN ---
Subjective This is a 65-year-old female with a previous medical history significant for hypertension and hypertensive cardiovascular disease, diabetes mellitus type 2, overweight, patient was seen by her family physician Dr. Levin about a week ago because of increased shortness breath, apparently the patient developed to have a significant upper respiratory tract infection with a sore throat and an acute bronchitis about 2 weeks prior to this presentation and the yesterday she became so short of breath that she could not even embolism for a few steps without getting extremely short of breath she ended up coming to the ER at [facility] and she was found to have pulmonary venous congestion with the acute systolic heart failure after she did have an echocardiogram with ejection fraction 20%. Patient had a baseline EKG with left bundle branch block , patient will need to have further ventilation by cardiology, patient will be seen and evaluated she was started already on Lasix 40 mg IV push every 12 hours , she was started on losartan along with Coreg 3.125 mg orally twice every day. 11/03: Weight is down 4.5 kg since admission. BUN 19 creatinine 0.73. She remains on Lasix 40 mg IV every 12 hours. She states her breathing is improved from yesterday. She has had a bowel movement. She is walking short distances. 11/04: Patient underwent heart catheterization yesterday with Dr. Rizvi that showed calcification and mild plaque without any critical stenosis with recommendations to maximize medical therapy and risk factor modification. Vital signs have been stable. She has been afebrile. Weight is down over 5 kg. Her shortness of breath is improving. Lasix will be switched over to oral with anticipation she will be ready for discharge by tomorrow. Objective - Vital Signs Vital signs: Vital Signs Temp 97.3 F L 11/04/16 04:00 Pulse 81 11/04/16 10:52 Resp 18 11/04/16 08:22 BP 123/73 11/04/16 10:52 Pulse Ox 91 L 11/04/16 08:22 Intake & Output 11/03/16 11/04/16 11/04/16 18:59 06:59 18:59 Intake Total 460 220 Output Total 850 550 Balance -390 -550 220 Weight 68.1 kg 68.1 kg Intake: IV 100 Oral 460 120 Output: Urine 850 550 Other: Voiding Method Toilet Toilet Toilet # Voids 1 - Exam General appearance: mild distress - EENT Eyes: anicteric sclerae, EOMI, PERRLA, no ptosis, no scleral icterus, normal appearance ENT: hearing grossly normal, normal oropharynx, no thrush, no tonsillar exudates Ears: bilateral: normal - Neck Neck: no lymphadenopathy, normal ROM, no rigidity, no stridor, no thyromegaly Carotids: bilateral: upstroke normal Thyroid: bilateral: normal size - Respiratory Respiratory: bilateral: diminished, rales, negative: dullness, rhonchi, wheezing , prolonged expiration - Cardiovascular Rhythm: regular Heart sounds: normal: S1, S2 Abnormal Heart Sounds: systolic murmur, S3 Gallop - Gastrointestinal General gastrointestinal: normal bowel sounds, soft, no splenomegaly, no tenderness, no umbilical hernia, no ventral hernia - Integumentary Integumentary: normal, normal turgor - Neurologic Neurologic: CNII-XII intact - Musculoskeletal Musculoskeletal: gait normal, generalized weakness - Psychiatric Psychiatric: A&O x's 3, appropriate affect, intact judgment & insight - Labs CBC & Chem 7: 11/03/16 06:08 11/04/16 06:46 Labs: Abnormal Lab Results - Last 24 Hours (Table) 11/03/16 11/03/16 11/03/16 Range/Units 11:56 16:54 20:54 BUN (7-17) mg/dL Glucose (74-99) mg/dL POC Glucose (mg/dL) 118 H 133 H 103 H (75-99) mg/dL 11/04/16 11/04/16 Range/Units 06:46 06:47 BUN 25 H (7-17) mg/dL Glucose 114 H (74-99) mg/dL POC Glucose (mg/dL) 114 H (75-99) mg/dL Assessment and Plan Plan: 1. Acute on chronic systolic heart failure likely related to viral illness. Lasix 40 mg oral every 12 hours, losartan 25 mg orally once every day, Coreg 3.125 mg orally twice every day, echogram was done, cardiac enzymes were done, input and output and daily weight, low salt intake, cardiology consultation, dietitian for fluid restriction. 2. Accelerated hypertension. Continue losartan 25 mg orally once every day, Coreg 3.125 mg orally twice every day. 3. Diabetes mellitus type 2. Continue consistent carbohydrate diet 1800- calorie, metformin 500 mg orally twice every day, BGM before each meal and at bedtime. 4. Obesity with possible obstructive sleep apnea. Patient will need to have a sleep study as an outpatient. 5. DVT prophylaxis. Heparin 5000 units subcutaneously every 12 hours. 6. GI prophylaxis. Continue Protonix 40 mg orally once every day. 7. Patient is full code. Discharge plan: Return home Impression and plan of care have been directed as dictated by the signing physician. Eunice Longoria nurse practitioner acting as scribe for signing physician. Time with Patient: Greater than 30
[2016-11-04] MEDS ORDERED: MAGNESIUM HYDROXIDE 2,400 MG/10 ML CUP PO PRN (13:57)
[2016-11-04] MEDS: FUROSEMIDE 40 MG TAB PO SCH (16:06)
[2016-11-04 17:13] LABS: Glucose,Whole Blood 127 mg/dL (75-99)
[2016-11-04 21:22] LABS: Glucose,Whole Blood 122 mg/dL (75-99)
[2016-11-05 06:50] LABS: Anion Gap 12 mmol/L; Blood Urea Nitrogen 22 mg/dL (7-17); Calcium 9.7 mg/dL (8.4-10.2); Carbon Dioxide 26 mmol/L (22-30); Chloride 107 mmol/L (98-107); Glucose 108 mg/dL (74-99); Non-African American GFR(MDRD) >60 (>60 ml/min/1.73 sqM); Potassium 3.5 mmol/L (3.5-5.1); Sodium 145 mmol/L (137-145)
[2016-11-05 07:00] LABS: Glucose,Whole Blood 111 mg/dL (75-99)
[2016-11-05] MEDS: INSULIN LISPRO (humaLOG) 300 UNIT/3 ML VIAL SQ SCH (07:05)
[2016-11-05] MEDS: CARVEDILOL 3.125 MG TAB PO SCH (07:06)
[2016-11-05] MEDS: PILOCARPINE HCL BOTH EYES SCH ×3 (07:46→09:05)
[2016-11-05] MEDS: SODIUM CHLORIDE 0.9% 1,000 ML IV SCH (07:46)
[2016-11-05 07:58] VITALS: BP 119/66; PULSE 85; RESP 16; TEMP 97.1
[2016-11-05] MEDS: TIMOLOL 0.5% OPHTH DROPS 5 ML BTL BOTH EYES SCH (07:59)
[2016-11-05] MEDS: FUROSEMIDE 40 MG TAB PO SCH (07:59)
[2016-11-05] MEDS: CHOLECALCIFEROL 1,000 UNIT TAB PO SCH (07:59)
[2016-11-05] MEDS: HEPARIN SODIUM,PORCINE 5,000 UNIT/ML 1 ML VIAL SQ SCH (07:59)
[2016-11-05] MEDS: LOSARTAN 25 MG TAB PO SCH (07:59)
--- NOTE | 2016-11-05 09:42 | P.DS ---
Providers Date of admission: 11/01/16 23:29 Expected date of discharge: 11/05/16 Attending physician: Leif Lubin Consults: 11/01/16 23:50 Consult Physician Routine Consulting Provider: Yann Rizvi Consult Reason/Comments: CHF, rule out pulmonary artery hypertension Do you want consulting provider notified?: Yes, Notify in am Primary care physician: Samira Levin [facility] Course: This is a 65-year-old female with a previous medical history significant for hypertension and hypertensive cardiovascular disease, diabetes mellitus type 2, overweight, patient was seen by her family physician Dr. Levin about a week ago because of increased shortness breath, apparently the patient developed to have a significant upper respiratory tract infection with a sore throat and an acute bronchitis about 2 weeks prior to this presentation and the yesterday she became so short of breath that she could not even embolism for a few steps without getting extremely short of breath she ended up coming to the ER at [facility] and she was found to have pulmonary venous congestion with the acute systolic heart failure after she did have an echocardiogram with ejection fraction 20%. Patient had a baseline EKG with left bundle branch block , patient will need to have further ventilation by cardiology, patient will be seen and evaluated she was started already on Lasix 40 mg IV push every 12 hours , she was started on losartan along with Coreg 3.125 mg orally twice every day. 11/03: Weight is down 4.5 kg since admission. BUN 19 creatinine 0.73. She remains on Lasix 40 mg IV every 12 hours. She states her breathing is improved from yesterday. She has had a bowel movement. She is walking short distances. 11/04: Patient underwent heart catheterization yesterday with Dr. Rizvi that showed calcification and mild plaque without any critical stenosis with recommendations to maximize medical therapy and risk factor modification. Vital signs have been stable. She has been afebrile. Weight is down over 5 kg. Her shortness of breath is improving. Lasix will be switched over to oral with anticipation she will be ready for discharge by tomorrow. 11/05: Vital signs are stable. Heart rate is in the 80s. Breathing status is improved. Patient will be discharged home today in stable condition. Discharge diagnoses: 1. Acute on chronic systolic heart failure likely related to viral illness. 2. Accelerated hypertension. 3. Diabetes mellitus type 2. 4. Obesity with possible obstructive sleep apnea. Patient will need to have a sleep study as an outpatient. Discharge plan: Return home Impression and plan of care have been directed as dictated by the signing physician. Eunice Longoria nurse practitioner acting as scribe for signing physician. Patient Condition at Discharge: Good Plan - Discharge Summary New Discharge Prescriptions: Carvedilol [Coreg] 3.125 mg PO BID-W/MEALS #60 tab Furosemide [Lasix] 40 mg PO BID@0900,1600 #60 tab Potassium Chloride ER [K-Dur 20] 20 meq PO BID #60 tab Discharge Medication List Albuterol Inhaler [Ventolin Hfa Inhaler] 2 puff INHALATION RT-Q6H PRN 11/01/16 [ History] Cholecalciferol [Vitamin D3] 5,000 unit PO DAILY 11/01/16 [History] Cyanocobalamin [Vitamin B-12] 500 mcg PO DAILY 11/01/16 [History] Losartan [Cozaar] 25 mg PO DAILY 11/01/16 [History] [place]-3 Fatty Acids/Fish Oil [Fish Oil 1,000 mg Softgel] 1 cap PO DAILY [History] Pilocarpine HCl [Isopto Carpine 4%] 2 drop BOTH EYES BID 11/01/16 [History] Timolol [Betimol 0.5% Ophth Soln] 1 drop BOTH EYES BID 11/01/16 [History] metFORMIN HCL [Glucophage] 500 mg PO BID 11/01/16 [History] Fluticasone/Salmeterol [Advair 250-50 Diskus] 1 inhalation PO RT-BID 11/02/16 [ History] Carvedilol [Coreg] 3.125 mg PO BID-W/MEALS #60 tab 11/05/16 [Rx] Furosemide [Lasix] 40 mg PO BID@0900,1600 #60 tab 11/05/16 [Rx] Potassium Chloride ER [K-Dur 20] 20 meq PO BID #60 tab 11/05/16 [Rx] Follow up Appointment(s)/Referral(s): [facility] [Provider Group] - 1 Week Samira Levin MD [Primary Care Provider] - 1 Week
== END 2016-11-05 11:12 | disposition home or self-care (01) | DRG 287 ==
LOC: EC 20:15 → 6SEL 23:29
PROVIDERS: ADMIT Internal Medicine; ATTEND Internal Medicine
PROC: B2111ZZ Fluoroscopy of Multiple Coronary Arteries using Low Osmolar Contrast (ICD-10-PCS; 2016-11-04)
PROC: B2151ZZ Fluoroscopy of Left Heart using Low Osmolar Contrast (ICD-10-PCS; 2016-11-04)
PROC: 4A023N7 Measurement of Cardiac Sampling and Pressure, Left Heart, Percutaneous Approach (ICD-10-PCS; principal; 2016-11-04 07:30)
DX: I11.0 Hypertensive heart disease with heart failure (principal); I42.9 Cardiomyopathy, unspecified; I27.2 Other secondary pulmonary hypertension; I44.7 Left bundle-branch block, unspecified; I50.23 Acute on chronic systolic (congestive) heart failure; E11.9 Type 2 diabetes mellitus without complications; I25.10 Atherosclerotic heart disease of native coronary artery without angina pectoris; G47.33 Obstructive sleep apnea (adult) (pediatric); E78.5 Hyperlipidemia, unspecified; I34.0 Nonrheumatic mitral (valve) insufficiency; B97.89 Other viral agents as the cause of diseases classified elsewhere; J44.9 Chronic obstructive pulmonary disease, unspecified; M19.90 Unspecified osteoarthritis, unspecified site; R00.0 Tachycardia, unspecified; R16.0 Hepatomegaly, not elsewhere classified; R53.1 Weakness; E66.9 Obesity, unspecified; Z87.891 Personal history of nicotine dependence; Z83.3 Family history of diabetes mellitus; Z80.0 Family history of malignant neoplasm of digestive organs; Z79.899 Other long term (current) drug therapy; Z79.84 Long term (current) use of oral hypoglycemic drugs; Z79.51 Long term (current) use of inhaled steroids; Z71.3 Dietary counseling and surveillance; Z68.29 Body mass index [BMI] 29.0-29.9, adult; Z86.19 Personal history of other infectious and parasitic diseases; Z87.09 Personal history of other diseases of the respiratory system
CPT/HCPCS: 36415; 71020; 80048; 80053; 82550; 82553; 83036; 83735; 83880; 84484; 85025; 85610; 85730; 93005; 93306; 93458; 94640; 94760

== ENCOUNTER 2017-10-25 11:23 | Day surgery (SDC) | payer MEDICARE ==
[2017-10-20 13:20] VITALS: BMI 31.8
[~2017-10-25 11:23] MED LIST: ceFAZolin 1,000 MG in SODIUM CHLORIDE 0.9% IRRIGATIO 250 ML IRRIGATION ONE; ceFAZolin IN SWFI 2 GM/20 ML SYRINGE IVP ONE
[2017-10-25] MEDS: SODIUM CHLORIDE 0.9% 1,000 ML IV SCH (11:55)
[2017-10-25 12:12] LABS: Basophils % (A) 0 %; Eosinophils # (A) 0.1 k/uL (0-0.7); Eosinophils % (A) 2 %; HCT 40.1 % (34.0-46.0); HGB 13.4 gm/dL (11.4-16.0); Lymphocytes # (A) 2.5 k/uL (1.0-4.8); Lymphocytes % (A) 36 %; MCH 27.4 pg (25.0-35.0); MCHC 33.5 g/dL (31.0-37.0); Mean Platelet Volume 8.5; Monocytes # (A) 0.4 k/uL (0-1.0); Monocytes % (A) 5 %; Neutrophils # (A) 3.8 k/uL (1.3-7.7); Neutrophils % (A) 54 %; Platelet Count 207 k/uL (150-450); RBC 4.89 m/uL (3.80-5.40); RDW 13.3 % (11.5-15.5)
[2017-10-25 12:20] LABS: Glucose,Whole Blood 124 mg/dL (75-99)
[2017-10-25 13:18] LABS: Anion Gap 16 mmol/L; Blood Urea Nitrogen 21 mg/dL (7-17); Carbon Dioxide 24 mmol/L (22-30); Chloride 105 mmol/L (98-107); Glucose 123 mg/dL (74-99); Potassium 4.3 mmol/L (3.5-5.1); Sodium 145 mmol/L (137-145)
[2017-10-25 13:19] LABS: Calcium 9.7 mg/dL (8.4-10.2)
[2017-10-25] MEDS ORDERED: PROPOFOL 10 MG/ML 20 ML VIAL IV ONE (13:36)
[2017-10-25] MEDS ORDERED: MEPERIDINE 50 MG/ML SYRINGE ONE (13:36)
[2017-10-25] MEDS ORDERED: MIDAZOLAM 2 MG/2 ML VIAL ONE (13:36)
[2017-10-25] MEDS ORDERED: fentaNYL (PF) 50 MCG/ML 2 ML AMP ONE (13:36)
[2017-10-25] MEDS ORDERED: HYDROcodone/APAP 5-325MG 1 EACH TAB PO PRN (13:48)
[2017-10-25] MEDS ORDERED: ACETAMINOPHEN TAB 325 MG TAB PO PRN (13:48)
[2017-10-25] MEDS ORDERED: IOPAMIDOL-370 50ML BTL INJ ONE ×2 (13:54→16:24)
[2017-10-25] MEDS ORDERED: LIDOCAINE 1% INJ 10MG/ML (20 ML MDV) SQ ONE (14:36)
[2017-10-25] MEDS ORDERED: ACETAMINOPHEN IV (For NPO) 1,000 MG in EMPTY BAG 1 BAG IVPB ONE (18:00)
[2017-10-25 20:07] LABS: Hemoglobin A1C 6.4 % (4.0-6.0)
[2017-10-25] MEDS ORDERED: ONDANSETRON 4 MG/2 ML VIAL IVP PRN (20:33)
[2017-10-25] MEDS: ceFAZolin IN SWFI 2 GM/20 ML SYRINGE IVP SCH (20:43)
[2017-10-25] MEDS ORDERED: ATORVASTATIN 20 MG TAB PO SCH (21:00)
[2017-10-25] MEDS: CARVEDILOL 3.125 MG TAB PO SCH (22:39)
[2017-10-25] MEDS: PILOCARPINE HCL BOTH EYES SCH (22:42)
[2017-10-26] MEDS: ceFAZolin IN SWFI 2 GM/20 ML SYRINGE IVP SCH ×3 (01:50→12:36)
[2017-10-26] MEDS: LACTATED RINGERS 1,000 ML IV SCH ×2 (03:46→07:11)
[2017-10-26] MEDS: SODIUM CHLORIDE 0.9% 1,000 ML IV SCH ×2 (03:47)
--- NOTE | 2017-10-26 07:06 | XR ---
EXAMINATION TYPE: XR chest 2V DATE OF EXAM: 10/26/2017 COMPARISON: Chest x-ray November 01, 2016. HISTORY: Status post pacemaker insertion. TECHNIQUE: Frontal and lateral views of the chest are obtained. FINDINGS: There is chronic parenchymal change without suspicious new focal air space opacity, pleura l effusion, or pneumothorax seen. The cardiac silhouette size is mildly enlarged on current study le ss prominent than prior. There is new 2-lead pacemaker with leads terminating in right atrium and r ight ventricle . An atherosclerotic and ectatic thoracic aorta is redemonstrated atherosclerotic. The osseous structures are intact. IMPRESSION: New dual lead pacemaker/AICD with leads terminating in right atrium and right ventricle. No evidence of complication related to pacemaker placement.
[2017-10-26] MEDS: PILOCARPINE HCL BOTH EYES SCH (07:12)
[2017-10-26] MEDS: CARVEDILOL 3.125 MG TAB PO SCH (07:16)
[2017-10-26 07:46] VITALS: RESP 18
[2017-10-26] MEDS ORDERED: SPIRONOLACTONE 25 MG TAB PO SCH (09:00)
[2017-10-26] MEDS ORDERED: TIMOLOL 0.5% OPHTH DROPS 5 ML BTL BOTH EYES SCH (09:00)
[2017-10-26] MEDS ORDERED: FUROSEMIDE 40 MG TAB PO SCH (09:00)
--- NOTE | 2017-10-26 09:29 | ECHOF ---
Referral Reason:PERICARDIAL EFFUSION MEASUREMENTS -------- HEIGHT: 152.4 cm WEIGHT: 73.9 kg BP: FINDINGS -------- Limited study for assessment of pericardial effusion. There is no pericardial effusion. CONCLUSIONS -------- 1. Limited study for assessment of pericardial effusion. 2. There is no pericardial effusion. DIAGNOSTIC RADIOLOGIST: Baldomero Quintanilla RDCS
--- NOTE | 2017-10-26 09:37 | ECHOF ---
Referral Reason:PERICARDIAL EFFUSION MEASUREMENTS -------- HEIGHT: 152.4 cm WEIGHT: 73.9 kg BP: 143/77 RVIDd: 4.5 cm (< 3.3) IVSd: 1.1 cm (0.6 - 1.1) LVIDd: 4.9 cm (3.9 - 5.3) LVPWd: 1.1 cm (0.6 - 1.1) IVSs: 1.2 cm LVIDs: 3.8 cm LVPWs: 1.2 cm LAESV Index (A-L): 35.20 ml/m Ao Diam: 3.3 cm (2.0 - 3.7) AV Cusp: 1.5 cm (1.5 - 2.6) MV E Matthieu: 1.23 m/s MV DecT: 163 ms MV A Matthieu: 0.00 m/s MV E/A Ratio: 349.63 RAP: 5.00 mmHg RVSP: 39.42 mmHg FINDINGS -------- Paced rhythm. This was a technically difficult study with suboptimal views. The left ventricular size is normal. There is borderline concentric left ventricular hypertrophy. There is severe global hypokinesis of LV . Overall left ventricular systolic function is severely impaired with, an EF < 20%. The right ventricle is moderately enlarged. LA is moderately dilated 34-39 ml/m2 The right atrium is normal in size. Electronic pacemaker lead seen in the right ventricular cavity. 3ml of Lumason was utilized for enhancement of images. Aortic valve is trileaflet and is mildly thickened. Trace amount of aortic regurgitation. There is no evidence of aortic stenosis. The mitral valve leaflets are mildly thickened. Mild mitral regurgitation is present. Syaj-gv-sodwnkqa tricuspid regurgitation present. There is mild pulmonary hypertension. The right ventricular systolic pressure, as measured by Doppler, is 39.42mmHg. The pulmonic valve was not well visualized. The aortic root size is normal. Normal inferior vena cava with normal inspiratory collapse consistent with estimated right atrial pre ssure of 5 mmHg. There is no pericardial effusion. CONCLUSIONS -------- 1. Paced rhythm. 2. This was a technically difficult study with suboptimal views. 3. The left ventricular size is normal. 4. There is borderline concentric left ventricular hypertrophy. 5. There is severe global hypokinesis of LV . 6. Overall left ventricular systolic function is severely impaired with, an EF < 20%. 7. The right ventricle is moderately enlarged. 8. LA is moderately dilated 34-39 ml/m2 9. Electronic pacemaker lead seen in the right ventricular cavity. 10. 3ml of Lumason was utilized for enhancement of images. 11. Aortic valve is trileaflet and is mildly thickened. 12. Trace amount of aortic regurgitation. 13. The mitral valve leaflets are mildly thickened. 14. Mild mitral regurgitation is present. 15. Febq-sb-pafxgozt tricuspid regurgitation present. 16. There is mild pulmonary hypertension. 17. The right ventricular systolic pressure, as measured by Doppler, is 39.42mmHg. 18. The pulmonic valve was not well visualized. 19. The aortic root size is normal. 20. There is no pericardial effusion. PROOF MACHINE OPERATOR: Baldomero Quintanilla RDCS
[2017-10-26 11:31] VITALS: BP 128/71; PULSE 87; TEMP 98.2
--- NOTE | 2017-10-26 13:01 | P.DS ---
Providers Attending physician: Yinka George Primary care physician: [facility] Course: Patient is doing well. She has no hematoma minimal soakage in the dressing. Her device interrogation was within normal limits. She denies any chest discomfort no undue shortness of breath she is lying comfortably in bed. 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 and QRS fractionation Class II CHF, chronic Alternating left bundle branch block and right bundle branch block pattern on ECG Wide QRS Status post ICD implant Plan Continue current medications without any changes Patient will be scheduled for implantation of a His bundle lead or and LV lead either intracardiac or epicardial Discussed with the patient and her family Patient Condition at Discharge: Stable Plan - Discharge Summary Discharge Rx Participant: Yes New Discharge Prescriptions: Continue RX: metFORMIN HCL [Glucophage] 500 mg PO BID RX: Timolol [Betimol 0.5% Ophth Soln] 1 drop BOTH EYES DAILY RX: Cyanocobalamin [Vitamin B-12] 500 mcg PO DAILY RX: Cholecalciferol [Vitamin D3] 5,000 unit PO DAILY RX: [place]-3 Fatty Acids/Fish Oil [Fish Oil 1,000 mg Softgel] 1 cap PO DAILY RX: Albuterol Inhaler [Ventolin Hfa Inhaler] 2 puff INHALATION RT-Q6H PRN PRN Reason: Shortness Of Breath RX: Pilocarpine HCl [Isopto Carpine 4%] 2 drop BOTH EYES BID RX: Fluticasone/Salmeterol [Advair 250-50 Diskus] 1 inhalation PO BID PRN PRN Reason: Dyspnea RX: Carvedilol [Coreg] 3.125 mg PO BID-W/MEALS #60 tab RX: Spironolactone [Aldactone] 25 mg PO DAILY RX: Atorvastatin [Lipitor] 20 mg PO HS RX: Furosemide [Lasix] 40 mg PO DAILY Discharge Medication List RX: Albuterol Inhaler [Ventolin Hfa Inhaler] 2 puff INHALATION RT-Q6H PRN [History] RX: Cholecalciferol [Vitamin D3] 5,000 unit PO DAILY 11/01/16 [History] RX: Cyanocobalamin [Vitamin B-12] 500 mcg PO DAILY 11/01/16 [History] RX: [place]-3 Fatty Acids/Fish Oil [Fish Oil 1,000 mg Softgel] 1 cap PO DAILY [History] RX: Pilocarpine HCl [Isopto Carpine 4%] 2 drop BOTH EYES BID 11/01/16 [History] RX: Timolol [Betimol 0.5% Ophth Soln] 1 drop BOTH EYES DAILY 11/01/16 [History] RX: metFORMIN HCL [Glucophage] 500 mg PO BID 11/01/16 [History] RX: Fluticasone/Salmeterol [Advair 250-50 Diskus] 1 inhalation PO BID PRN [History] RX: Carvedilol [Coreg] 3.125 mg PO BID-W/MEALS #60 tab 11/05/16 [Rx] RX: Atorvastatin [Lipitor] 20 mg PO HS 10/20/17 [History] RX: Furosemide [Lasix] 40 mg PO DAILY 10/20/17 [History] RX: Spironolactone [Aldactone] 25 mg PO DAILY 10/20/17 [History] Follow up Appointment(s)/Referral(s): Yann Rizvi MD [STAFF PHYSICIAN] - 11/01/17 8:30 am (Device Clinic WednesdayNovember 01 @ 0830 Dr. Hanson January 18 @ 415pm) Patient Instructions/Handouts: Implantable Cardioverter Defibrillator (DC) Activity/Diet/Wound Care/Special Instructions: PATIENT EDUCATION MATERIAL Instructions following a heart rhythm device implant. 1. Keep dressing DRY for 5 DAYS. You may cover the area with Saran or Cling Wrap, prior to a shower. 2. The dressing will be removed in the Device Clinic at [facility]. Absorbable sutures were used to close the wound. 3. Avoid raising the left arm above the shoulder level. 4 week restriction 4. Avoid arm movements, like backscratching, rubbing the head, or pulling on a cord. 4 weeks restriction 5. Gentle range of motion movements of the shoulder, closest to the incision should be performed to avoid a frozen shoulder. (Pendulum exercises of the shoulder) 6. The opposite arm may be used freely. 7. Avoid driving for 7 days. 8. Avoid activities such as golfing, swimming, weed whacking, lifting more than 10 pounds weight, bowling, gymnastics and weight training/lifting. (6 weeks restriction) 9. Activities such as wood chopping with an axe, pull-ups in the gymnasium, power lifting, arc-welding, being close to home induction cooktops will always be a problem. 10. Arm sling is a mere reminder not to raise the arm above the head. However you do not need to keep the arm completely immobilized. Your free to move the arm and use it and for normal activities. In case of any problems, please call [facility], [place], @ [phone], Attention: Device Clinic Device clinic follow-up in 5 days Follow-up with primary cocoa powder mixer operator in 2-3 months
--- NOTE | 2017-10-26 20:08 | CE ---
CARDIAC ELECTROPHYSIOLOGY REPORT Norah Valderrama is a 66-year-old female patient of Dr. Rizvi and Dr. Levin. She has a history of nonischemic cardiomyopathy with a QRS fractionation of the 12-lead ECG with severe LV dysfunction. Prior to the ICD implantation I had referred her for cardiac MRI to evaluate for causes of chronic myocarditis with particular consideration for sarcoidosis. Her 2D echo shows severe LV dysfunction, but her cardiac MRI is consistent with sarcoidosis. She has hypokinesis of the inferior septum and thinning and dyskinesis of the anterior septum. She has history of class 2 CHF and alternating bundle branch block, both left bundle branch block with wide QRS and a right bundle branch block. PROCEDURE: The patient brought to the EP lab in a fasting state. Written informed consent was obtained prior to the procedure. The left shoulder area was prepped and draped as per protocol. 1% lidocaine was used for local anesthesia. Incision was made over the left deltopectoral groove and carried down to the level of the pectoralis muscle. A subfascial pocket was made. Hemostasis was assured. The left axillary vein was accessed and an initially sheath placement was attempted in the coronary sinus. Coronary sinus access was difficult on account of the QT of the coronary sinus os as well as the first 1-2 cm of the coronary sinus was angulated and therefore precluded easy entry within the body of the coronary sinus. 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 Therefore, dual-chamber ICD was implanted. The atrial lead was a terese lead implanted in the right atrial appendage. This was a 52 cm lead model 1944 and serial number [id number]. The ICD lead was a [employer] model number 7122Q, 58 cm in length and serial number [id number]. The new generator, dual-chamber ICD generator was a [employer] model number IZ2856-96I, serial number [id number]. The P waves were 2.3 mV, pacing impedance 540 ohms, pacing threshold 0.75 V at 0.5 milliseconds. 10 V test negative. The R-waves were 7.1 mV, pacing impedance 700 ohms, pacing threshold 0.5 V at 0.5 milliseconds. 10 V test negative. The device was then placed in the subfascial pocket. The wound was closed in 3 layers and dressed per protocol. DFT testing was withheld at this point. RESULT: 1. Successful dual-chamber ICD implantation. 2. Difficult coronary sinus anatomy especially at its os and the first 2 cm that precluded the easy entry of the diagnostic coronary sinus catheters from the subclavian axillary route, multiple different sheaths as well as wires and in the catheters. SUGGEST: After 4 weeks, reattempt should be made to access the coronary sinus. This would involve placement of the coronary sinus catheter from the femoral route first to straighten the tortuous anatomy of the floor coronary sinus body so as to permit entry into the coronary sinus. Alternatively epicardial lead may be considered. The other alternative is His bundle lead. However, in view of her alternating left and right bundle and her likely diagnosis of sarcoidosis (chronic myocarditis with extensive conduction system disease) the long-term outlook for His bundle pacing could be problematic given the diffuse nature of the conduction system disease. This was explained to the patient especially her family members. MMCODI / SANTANAN: [id number] /
== END 2017-10-26 15:10 | disposition home or self-care (01) ==
LOC: CATHEP 11:23 → 3OBS 16:59 → CATHEP 10-26 15:10
PROVIDERS: ATTEND Internal Medicine Clinical Cardiac Electrophysiology
DX: I08.3 Combined rheumatic disorders of mitral, aortic and tricuspid valves (principal); I27.20 Pulmonary hypertension, unspecified; I42.8 Other cardiomyopathies; I45.2 Bifascicular block; Z00.6 Encounter for examination for normal comparison and control in clinical research program; I11.0 Hypertensive heart disease with heart failure; Q24.5 Malformation of coronary vessels; I50.22 Chronic systolic (congestive) heart failure; Z87.891 Personal history of nicotine dependence; E11.9 Type 2 diabetes mellitus without complications; Z79.84 Long term (current) use of oral hypoglycemic drugs; Z79.899 Other long term (current) drug therapy
CPT/HCPCS: 93308; 33249; 80048; 85025; 83036; 71046; C8929; C1769 ×6; C1892 ×2; C1730; C1887; C1777; C1900; C1898; C1882; J2250; J2175; J2405; J0690 ×3; J2001; J3010; J2704; Q9950; Q9967; 93306

== ENCOUNTER 2018-01-24 13:00 | Day surgery (SDC) | payer MEDICARE ==
[2018-01-19 12:32] VITALS: BMI 31.8
[~2018-01-24 13:00] MED LIST changes: +ceFAZolin 1,000 MG in DEXTROSE/WATER 1 50ML.BAG IVPB STA
[2018-01-24 13:14] LABS: Basophils % (A) 0 %; Eosinophils # (A) 0.1 k/uL (0-0.7); Eosinophils % (A) 2 %; HCT 35.6 % (34.0-46.0); HGB 12.1 gm/dL (11.4-16.0); Lymphocytes # (A) 2.2 k/uL (1.0-4.8); Lymphocytes % (A) 37 %; MCH 28.4 pg (25.0-35.0); MCV 83.6 fL (80.0-100.0); Mean Platelet Volume 8.5; Monocytes # (A) 0.3 k/uL (0-1.0); Monocytes % (A) 5 %; Neutrophils # (A) 3.1 k/uL (1.3-7.7); Neutrophils % (A) 52 %; Platelet Count 165 k/uL (150-450); RBC 4.26 m/uL (3.80-5.40); RDW 13.7 % (11.5-15.5)
[2018-01-24] MEDS ORDERED: SODIUM CHLORIDE 0.9% 1,000 ML IV ONE (13:17)
[2018-01-24 13:26] LABS: Anion Gap 10 mmol/L; Blood Urea Nitrogen 15 mg/dL (7-17); Calcium 9.3 mg/dL (8.4-10.2); Carbon Dioxide 22 mmol/L (22-30); Chloride 111 mmol/L (98-107); Glucose 115 mg/dL (74-99); Potassium 4.1 mmol/L (3.5-5.1); Sodium 143 mmol/L (137-145)
[2018-01-24 14:26] LABS: Glucose,Whole Blood 123 mg/dL (75-99)
[2018-01-24] MEDS ORDERED: PROPOFOL 10 MG/ML 20 ML VIAL IV ONE ×2 (14:31)
[2018-01-24] MEDS ORDERED: MIDAZOLAM 2 MG/2 ML VIAL ONE ×2 (14:31)
[2018-01-24] MEDS ORDERED: HYDROmorphone (PF) 1 MG/ML ONE ×2 (14:31)
[2018-01-24] MEDS ORDERED: fentaNYL (PF) 50 MCG/ML 2 ML AMP ONE ×2 (14:31)
[2018-01-24] MEDS ORDERED: IOPAMIDOL-250 50ML BTL IV ONE (14:45)
[2018-01-24] MEDS ORDERED: LIDOCAINE 1% INJ 10MG/ML (20 ML MDV) ONE ×2 (14:54→15:25)
[2018-01-24] MEDS ORDERED: LIDOCAINE 1% INJ 10MG/ML (20 ML MDV) SQ ONE ×2 (15:06)
[2018-01-24] MEDS ORDERED: ceFAZolin IN SWFI 2 GM/20 ML SYRINGE IVP ONE ×2 (15:21→15:28)
[2018-01-24] MEDS ORDERED: LIDOCAINE 1% (PF) 10MG/ML VIAL SQ ONE (15:44)
[2018-01-24] MEDS ORDERED: IOPAMIDOL-370 50ML BTL INJ ONE (16:40)
[2018-01-24] MEDS ORDERED: ACETAMINOPHEN IV (For NPO) 1,000 MG in EMPTY BAG 1 BAG IVPB ONE (17:13)
[2018-01-24] MEDS ORDERED: ACETAMINOPHEN TAB 325 MG TAB PO PRN (17:13)
[2018-01-24] MEDS ORDERED: HYDROcodone/APAP 5-325MG 1 EACH TAB PO PRN (17:13)
[2018-01-24] MEDS: LACTATED RINGERS 1,000 ML IV SCH (17:59)
[2018-01-24] MEDS: SODIUM CHLORIDE 0.9% 1,000 ML IV SCH ×2 (17:59→18:01)
--- NOTE | 2018-01-24 18:10 | PCN ---
PROCEDURE NOTE Norah Valderrama is a 67-year-old female with severe cardiomyopathy and left bundle branch block who was evaluated for cardiac sarcoidosis. The cardiac PET scan did not suggest cardiac sarcoidosis. She was brought in for upgrade to a biventricular ICD which was to be attached to the previously inserted biventricular ICD generator. PROCEDURE #1: Right groin was prepped and draped as per protocol. Venous sheath was placed. Via this a diagnostic catheter was placed in the RV and later at the mouth of the coronary sinus to open the coronary sinus os, which had a large Thebesian valve. The left pectoral area was then prepped and draped as per protocol; 1% lidocaine was used for local anesthesia. A 4 cm incision was made directly over the previous surgical site and carried down to the level of the generator. The generator was explanted. Access was obtained. Sheath was placed in the left subclavian venous circulation. This was an axillary vein access. The coronary sinus catheter was placed in the coronary sinus. A venogram was performed. The patient had a large anterolateral vein. [employer] lead quality technician was placed in the LV vein. Excellent thresholds were obtained, especially in the proximal poles. High thresholds were obtained in the more distal poles. No diaphoretic stimulation noted. This was [employer] model #1458Q, 75 cm length, and serial number [id number]. The pacing impedance was 790 ohms, pacing threshold 0.75 V at 0.5 milliseconds. Ten- volt test was negative. The lead was then secured to the underlying pectoralis fascia after the sheath. This was connected to the old generator, [employer] model #ZL2935-87, serial #[id number]. The RA leads and the RV leads were interrogated and were within normal limits. The device then programmed to AV sync mode which resulted in a narrow QRS of 116 milliseconds. The patient tolerated the procedure well without any acute complications. The venous sheath from below was then removed and hemostasis was assured. RESULT: Successful upgrade to a biventricular ICD. MMODL / IJN: [id number] /
[2018-01-24] MEDS: CARVEDILOL 3.125 MG TAB PO SCH (19:04)
[2018-01-24] MEDS ORDERED: ONDANSETRON 4 MG/2 ML VIAL IVP PRN (19:42)
[2018-01-24 19:53] LABS: Glucose,Whole Blood 121 mg/dL (75-99)
[2018-01-24] MEDS ORDERED: ATORVASTATIN 20 MG TAB PO SCH (21:00)
[2018-01-24] MEDS: metFORMIN 500 MG TAB PO SCH (21:57)
[2018-01-24] MEDS: ceFAZolin IN SWFI 2 GM/20 ML SYRINGE IVP SCH (21:57)
[2018-01-25] MEDS: ceFAZolin IN SWFI 2 GM/20 ML SYRINGE IVP SCH ×3 (03:47→14:47)
[2018-01-25 06:57] LABS: Glucose,Whole Blood 112 mg/dL (75-99)
--- NOTE | 2018-01-25 08:02 | XR ---
EXAMINATION TYPE: XR chest 2V DATE OF EXAM: 01/25/2018 COMPARISON: Chest x-ray from 3 months ago. HISTORY: Defibrillator placement. TECHNIQUE: Frontal and lateral views of the chest are obtained. FINDINGS: There is redemonstration of dual-lead pacemaker/AICD with leads terminating in right atrium and right ventricle. There is new third lead terminating and coronary sinus. There is no focal air s pace opacity, pleural effusion, or pneumothorax seen. The cardiac silhouette size remains enlarged. The osseous structures are intact. IMPRESSION: New third lead terminating in coronary sinus. Cardiomegaly without acute pulmonary proce ss. No evidence of radiographic complication related to pacemaker placement.
[2018-01-25] MEDS: SODIUM CHLORIDE 0.9% 1,000 ML IV SCH ×2 (08:04)
[2018-01-25] MEDS: LACTATED RINGERS 1,000 ML IV SCH (08:05)
[2018-01-25] MEDS: metFORMIN 500 MG TAB PO SCH (08:14)
[2018-01-25] MEDS: CARVEDILOL 3.125 MG TAB PO SCH (08:15)
[2018-01-25 08:21] VITALS: RESP 18
[2018-01-25] MEDS ORDERED: LOSARTAN 25 MG TAB PO SCH (09:00)
[2018-01-25] MEDS ORDERED: TIMOLOL 0.5% OPHTH DROPS 5 ML BTL BOTH EYES SCH (09:00)
[2018-01-25] MEDS ORDERED: FUROSEMIDE 40 MG TAB PO SCH (09:00)
[2018-01-25] MEDS ORDERED: SPIRONOLACTONE 25 MG TAB PO SCH (09:00)
[2018-01-25 12:08] LABS: Glucose,Whole Blood 111 mg/dL (75-99)
[2018-01-25 12:12] VITALS: BP 117/74; PULSE 79; TEMP 98.8
--- NOTE | 2018-01-25 12:24 | P.DS ---
Providers Attending physician: Yinka George Primary care physician: [facility] Course: Patient is doing well. She underwent upgrade to a biventricular ICD yesterday. There is no hematoma minimal swelling minimal tenderness over the site. She denies any chest discomfort no undue shortness of breath On examination she is afebrile 98.8F, pulse rate in the 70s, blood pressure 117 /74 mmHg normal respirations Breath sounds are clear no rhonchi no crackles Heart sounds S1 and S2 are normal no murmurs or gallops no rub Abdomen is soft nontender Extremities are warm, no edema Impression Severe nonischemic cardio myopathy. Cardiac imaging with a PET/FDG scan did not suggest cardiac sarcoidosis Underlying left bundle branch block Status post upgrade to a biventricular ICD with LV lead in the lateral vein Device programmed to AV synchronized LV pacing which significantly reduced QRS duration from 168 ms down to 116 ms Plan Continue cardiac medications and follow with Dr. Rizvi. She will be discharged after completion of IV antibiotics Device was interrogated today electrical parameters and LV thresholds are excellent Patient Condition at Discharge: Stable Plan - Discharge Summary Discharge Rx Participant: Yes New Discharge Prescriptions: New Losartan [Cozaar] 12.5 mg PO DAILY #90 tab Continue metFORMIN HCL [Glucophage] 500 mg PO BID Timolol [Betimol 0.5% Ophth Soln] 1 drop BOTH EYES DAILY Cyanocobalamin [Vitamin B-12] 500 mcg PO DAILY Cholecalciferol [Vitamin D3] 5,000 unit PO DAILY [place]-3 Fatty Acids/Fish Oil [Fish Oil 1,000 mg Softgel] 1 cap PO DAILY Albuterol Inhaler [Ventolin Hfa Inhaler] 2 puff INHALATION RT-Q6H PRN PRN Reason: Shortness Of Breath Pilocarpine HCl [Isopto Carpine 4%] 2 drop BOTH EYES BID Fluticasone/Salmeterol [Advair 250-50 Diskus] 1 inhalation PO BID PRN PRN Reason: Dyspnea Carvedilol [Coreg] 3.125 mg PO BID-W/MEALS #60 tab Spironolactone [Aldactone] 25 mg PO DAILY Atorvastatin [Lipitor] 20 mg PO HS Furosemide [Lasix] 40 mg PO DAILY Discharge Medication List Albuterol Inhaler [Ventolin Hfa Inhaler] 2 puff INHALATION RT-Q6H PRN 11/01/16 [ History] Cholecalciferol [Vitamin D3] 5,000 unit PO DAILY 11/01/16 [History] Cyanocobalamin [Vitamin B-12] 500 mcg PO DAILY 11/01/16 [History] [place]-3 Fatty Acids/Fish Oil [Fish Oil 1,000 mg Softgel] 1 cap PO DAILY [History] Pilocarpine HCl [Isopto Carpine 4%] 2 drop BOTH EYES BID 11/01/16 [History] Timolol [Betimol 0.5% Ophth Soln] 1 drop BOTH EYES DAILY 11/01/16 [History] metFORMIN HCL [Glucophage] 500 mg PO BID 11/01/16 [History] Fluticasone/Salmeterol [Advair 250-50 Diskus] 1 inhalation PO BID PRN 11/02/16 [ History] Carvedilol [Coreg] 3.125 mg PO BID-W/MEALS #60 tab 11/05/16 [Rx] Atorvastatin [Lipitor] 20 mg PO HS 10/20/17 [History] Furosemide [Lasix] 40 mg PO DAILY 10/20/17 [History] Spironolactone [Aldactone] 25 mg PO DAILY 10/20/17 [History] Losartan [Cozaar] 12.5 mg PO DAILY #90 tab 01/24/18 [Rx] Follow up Appointment(s)/Referral(s): Yann Rizvi MD [STAFF PHYSICIAN] - 6 Weeks (Office will call patient with appointment for device clinic. Follow Dr. Rizvi as previously scheduled- February 14, 2018 @ 4:15) Activity/Diet/Wound Care/Special Instructions: PATIENT EDUCATION MATERIAL Instructions following a heart rhythm device implant. 1. Keep dressing DRY for 5 DAYS. You may cover the area with Saran or Cling Wrap, prior to a shower. 2. The dressing will be removed in the Device Clinic at [facility]. Absorbable sutures were used to close the wound. 3. Avoid raising the left arm above the shoulder level. 4 week restriction 4. Avoid arm movements, like backscratching, rubbing the head, or pulling on a cord. 4 weeks restriction 5. Gentle range of motion movements of the shoulder, closest to the incision should be performed to avoid a frozen shoulder. (Pendulum exercises of the shoulder) 6. The opposite arm may be used freely. 7. Avoid driving for 7 days. 8. Avoid activities such as golfing, swimming, weed whacking, lifting more than 10 pounds weight, bowling, gymnastics and weight training/lifting. (6 weeks restriction) 9. Activities such as wood chopping with an axe, pull-ups in the gymnasium, power lifting, arc-welding, being close to home induction cooktops will always be a problem. 10. Arm sling is a mere reminder not to raise the arm above the head. However you do not need to keep the arm completely immobilized. Your free to move the arm and use it and for normal activities. In case of any problems, please call [facility], [place], @ [phone], Attention: Device Clinic Device clinic follow-up in 5 days Follow-up with primary kennel operator in 2-3 months Discharge Disposition: HOME SELF-CARE
== END 2018-01-25 16:00 | disposition home or self-care (01) ==
LOC: CATHEP 13:00 → 3OBS 17:08 → CATHEP 01-25 16:00
PROVIDERS: ATTEND Internal Medicine Clinical Cardiac Electrophysiology
DX: I42.8 Other cardiomyopathies (principal); I44.7 Left bundle-branch block, unspecified; Z45.02 Encounter for adjustment and management of automatic implantable cardiac defibrillator; I11.0 Hypertensive heart disease with heart failure; I50.22 Chronic systolic (congestive) heart failure; E11.9 Type 2 diabetes mellitus without complications; Z79.84 Long term (current) use of oral hypoglycemic drugs; Z87.891 Personal history of nicotine dependence; E78.5 Hyperlipidemia, unspecified; Z79.899 Other long term (current) drug therapy
CPT/HCPCS: 33224; 80048; 85025; 71046; C1769 ×4; C1894; C1892; C1730 ×2; C1900; J2250; J2405; J2001 ×2; J3010; J1170; J0690 ×3; J0131; J2704; Q9966; Q9967; 33249

== ENCOUNTER 2018-04-26 10:50 | Day surgery (SDC) | payer MEDICARE ==
[2018-04-26] MEDS ORDERED: SODIUM CHLORIDE 0.9% 1,000 ML IV ONE (11:21)
[2018-04-26 11:32] VITALS: TEMP 98
[2018-04-26 11:39] LABS: Glucose,Whole Blood 113 mg/dL (75-99)
[2018-04-26] MEDS ORDERED: SODIUM CHLORIDE 0.9% 1,000 ML IV SCH (11:45)
[2018-04-26 12:06] LABS: Anion Gap 9 mmol/L; Blood Urea Nitrogen 15 mg/dL (7-17); Calcium 9.3 mg/dL (8.4-10.2); Carbon Dioxide 26 mmol/L (22-30); Chloride 108 mmol/L (98-107); Glucose 98 mg/dL (74-99); Sodium 143 mmol/L (137-145)
[2018-04-26 12:14] LABS: Potassium 4.8 mmol/L (3.5-5.1)
[2018-04-26] MEDS ORDERED: PROPOFOL 10 MG/ML 20 ML VIAL IV ONE (12:31)
[2018-04-26] MEDS ORDERED: MIDAZOLAM 2 MG/2 ML VIAL ONE (12:31)
--- NOTE | 2018-04-26 12:59 | P.PCN ---
Preoperative Diagnosis: Diagnosis Cardio myopathy Biventricular ICD Congestive heart failure [facility] biventricular ICD was interrogated. This is a Quadra Assura [id number] Q EQUAL OPPORTUNITY DIRECTOR-D Atrial pacing threshold 0.4 V at 0.5 ms, P waves 3.4 mV, pacing impedance 640 ohms RV pacing threshold 0.5 V at 15 ms R waves 11.9 mV, pacing impedance 450 ohms LV pacing threshold 2.7 V at 1 ms, M3-M2, LV pacing impedance 950 ohms High-voltage impedance 72 ohms DFT testing was performed under anesthesia A DC fibber protocol was used to induce ventricular fibrillation this was adequately and appropriately detected at least sensitivity Charge time charge time 1.5 seconds, high-voltage impedance 72 ohms Successful defibrillation, no post shock noise no dropouts Biventricular ICD was then reprogrammed. Appropriate antitachycardia pacing cardioversion and defibrillation according to the [facility] programming First cardioversion at 10 J first defibrillation at 20 J Result DFT at or below 10 J, Total ICD interrogation and reprogramming accordingly Patient also procedure well without any acute complications
[2018-04-26 15:03] VITALS: BP 149/74; PULSE 66; RESP 16
== END 2018-04-26 14:51 | disposition home or self-care (01) ==
LOC: CATHEP 10:50
PROVIDERS: ATTEND Internal Medicine Clinical Cardiac Electrophysiology
DX: I11.0 Hypertensive heart disease with heart failure (principal); I50.22 Chronic systolic (congestive) heart failure; I43 Cardiomyopathy in diseases classified elsewhere; Z45.02 Encounter for adjustment and management of automatic implantable cardiac defibrillator; F17.210 Nicotine dependence, cigarettes, uncomplicated; I44.7 Left bundle-branch block, unspecified; E11.9 Type 2 diabetes mellitus without complications; Z79.84 Long term (current) use of oral hypoglycemic drugs; Z79.899 Other long term (current) drug therapy
CPT/HCPCS: 93642; 80048; J2250; J2704

== ENCOUNTER → 2024-12-21 | Outpatient (CLI) | payer MEDICARE, OTHER ==
[2024-12-21 10:17] LABS: HCT 39.7 % (37.2-46.3); HGB 12.6 g/dL (12.0-15.0); MCH 28.1 pg (27.0-32.0); MCHC 31.7 g/dL (32.0-37.0); MCV 88.6 FL (80.0-97.0); Mean Platelet Volume 11.3 FL (9.5-12.2); NRBC Per 100 WBC 0 X 10*3/uL (0.00-0.01); Platelet Count 178 X 10*3/uL (140-440); RBC 4.48 X 10*6/uL (4.10-5.20); RDW 13.9 % (11.5-14.5); WBC 6.54 X 10*3/uL (4.50-10.00)
[2024-12-21 10:27] LABS: Blood Urea Nitrogen 16.8 mg/dL (9.0-27.0); Carbon Dioxide 24.7 mmol/L (21.6-31.8); Chloride 107 mmol/L (96-109); Potassium 3.4 mmol/L (3.5-5.5); Sodium 142 mmol/L (135-145)
== END | disposition home or self-care (01) ==
LOC: LABWHC1 07:47
PROVIDERS: ATTEND Internal Medicine Clinical Cardiac Electrophysiology
DX: Z01.812 Encounter for preprocedural laboratory examination (principal); I50.22 Chronic systolic (congestive) heart failure; I42.8 Other cardiomyopathies
CPT/HCPCS: 36415; 80051; 82565; 84520; 85027

== ENCOUNTER 2024-12-28 13:44 | Day surgery (SDC) | payer MEDICARE ==
[~2024-12-28 13:44] MED LIST changes: +ceFAZolin 1 GM in SODIUM CHLORIDE 0.9% IRRIG BTL 250 ML IRRIGATION PRN; -ceFAZolin 1,000 MG in DEXTROSE/WATER 1 50ML.BAG IVPB STA; -ceFAZolin 1,000 MG in SODIUM CHLORIDE 0.9% IRRIGATIO 250 ML IRRIGATION ONE; -ceFAZolin IN SWFI 2 GM/20 ML SYRINGE IVP ONE
[2024-12-28 14:57] LABS: Glucose,Whole Blood 87 mg/dL (70-110)
[2024-12-28] MEDS: SODIUM CHLORIDE 0.9% 1,000 ML IV SCH (15:15)
[2024-12-28] MEDS: VANCOMYCIN 1,250 MG in SODIUM CHLORIDE 0.9% 250 ML IVPB STA (16:18)
[2024-12-28 16:26] LABS: Glucose,Whole Blood 87 mg/dL (70-110)
[2024-12-28] MEDS ORDERED: diphenhydrAMINE 50 MG/ML 1 ML VIAL ONE (16:28)
[2024-12-28] MEDS ORDERED: MIDAZOLAM 2 MG/2 ML VIAL ONE (16:28)
[2024-12-28] MEDS ORDERED: PROPOFOL 10 MG/ML 20 ML VIAL IV ONE (16:28)
[2024-12-28] MEDS ORDERED: fentaNYL (PF) 50 MCG/ML 2 ML AMP ONE (16:28)
[2024-12-28] MEDS ORDERED: ONDANSETRON 4 MG/2 ML VIAL ONE (16:28)
[2024-12-28] MEDS: ROPIVACAINE 5 MG/ML 30 ML VIAL MISCELLANE ONE (17:15)
[2024-12-28] MEDS: LIDOCAINE 1% INJ 10MG/ML (30 ML VIAL-PF) SQ ONE (17:15)
[2024-12-28] MEDS: ceFAZolin 2 GM in DEXTROSE 5% IN WATER 50 ML IVPB PRN (17:15)
[2024-12-28] MEDS ORDERED: ACETAMINOPHEN IV (For NPO) 1,000 MG in EMPTY BAG 1 BAG IVPB ONE (18:05)
[2024-12-28] MEDS ORDERED: ACETAMINOPHEN TAB 325 MG TAB PO PRN (18:05)
--- NOTE | 2024-12-28 18:31 | P.EPPROC ---
- EP Procedure Note Electrophysiology Procedure Note: Diagnosis Cardiomyopathy, chronic nonischemic with an underlying left bundle branch block pattern Congestive heart failure [place] [employer] class 2-3 which is improved with biventricular pacing Wide QRS underlying QRS (branch block, wide On guide line directed medical treatment for greater than 3 months Status post biventricular ICD in 2018 with improvement in LV function Procedure: Biventricular ICD change for battery at [place], normal battery depletion Cinefluoroscopy revealed atrial lead chronically positioned in the right atrium, passive lead. ICD lead in the mid RV septum single coil. Quadripolar LV lead in the posterior lateral vein, stable. No fractures or breaks noted Result: Successful biventricular ICD generator change, Noosh heart failure ECONOMICS LECTURER- D Atrial lead: P waves 2.7 mV, pacing threshold 0.5 V at 0.5 ms and pacing impedance 610 ohms RV ICD lead: R waves 6 mV, pacing threshold 0.75 V at 0.5 ms and pacing impedance of 410 ohms Left ventricular lead: 2.75 V at 1 ms, M3-M2, lead in the posterior lateral vein chronically implanted, pacing impedance 990 ohms High-voltage impedance 60 ohms, RV-Can Procedure details: Patient was brought to the EP lab in a fasting state. Written informed consent was obtained prior to the procedure. Options, pros and cons, benefits and risks and complications discussed with patient in detail prior to the procedure (shared decision making) previously. Importance of continuing medical treatment emphasized previously. Alternatives discussed previously. IV vancomycin administered before the procedure. IV Kefzol intraoperatively The left pectoral area was prepped and draped as a protocol. IV antibiotics administered 1% lidocaine was used for local anesthesia. A 4 cm incision was made parallel to the deltopectoral groove, about 1.5 cm medial to it. The incision was carried down to the level of the pectoralis muscle and the subfascial pocket was persistent. Chronic generator explanted. Leads interrogated. Partial capsulectomy performed. New generator implanted and connected to the leads. Device programmed Pocket irrigated with antibiotic solution. Antibiotic pouch placed Leads connected to the biventricular ICD generator. Wound closed in 3 layers and dressed per protocol Biventricular ICD interrogated and programmed. Appropriate pacing parameters, antitachycardia therapies with antitachycardia pacing cardioversion defibrillations programmed. AV delay and biventricular pacing parameters programmed to achieve optimal physiologic pacing Patient tolerated the procedure well without any acute complications. See scanned device report in EMR for lead details
[2024-12-28 18:38] VITALS: BP 151/74; PULSE 63; RESP 16; TEMP 97.4
[2024-12-28] MEDS: LACTATED RINGERS 1,000 ML IV SCH (19:49)
[2024-12-28] MEDS: VANCOMYCIN IV PER PHARMACY 1 EACH MISC MISCELLANE STA (19:49)
[2024-12-28] MEDS: ATORVASTATIN 10 MG TAB PO SCH (21:20)
[2024-12-29] MEDS ORDERED: VANCOMYCIN 1,250 MG in SODIUM CHLORIDE 0.9% 250 ML IVPB PRN (05:00)
[2024-12-29] MEDS ORDERED: carvediloL 12.5 MG TAB PO SCH (07:30)
[2024-12-29] MEDS ORDERED: ATORVASTATIN 10 MG TAB PO SCH (09:00)
[2024-12-29] MEDS ORDERED: PIOGLITAZONE 30 MG TAB PO SCH (09:00)
[2024-12-29] MEDS ORDERED: FUROSEMIDE 40 MG TAB PO SCH (09:00)
[2024-12-29] MEDS ORDERED: DAPAGLIFLOZIN PROPANEDIOL 10 MG TABLET PO SCH (09:00)
[2024-12-29] MEDS ORDERED: LOSARTAN 50 MG TAB PO SCH (09:00)
== END 2024-12-28 21:25 | disposition home or self-care (01) ==
LOC: CATHEP 13:44 → 6NMEDSUR 17:17 → CATHEP 21:25
PROVIDERS: ATTEND Internal Medicine Clinical Cardiac Electrophysiology
DX: I42.9 Cardiomyopathy, unspecified (principal); I44.7 Left bundle-branch block, unspecified; I50.9 Heart failure, unspecified; Z45.02 Encounter for adjustment and management of automatic implantable cardiac defibrillator
CPT/HCPCS: 33264; C1882; J2250; J3370; J1200; J0690; J2405; J2003; J3010; J2795; J2704